=== PATIENT | male | born 1950 | race Caucasian/White ===

== ENCOUNTER → 2023-11-29 11:56 | Outpatient (REF) | payer OTHER, SELFPAY | LOC: PET 11:56 | PROVIDERS: ATTENDING PHYSICIAN Internal Medicine Hematology & Oncology | DX: C34.11 Malignant neoplasm of upper lobe, right bronchus or lung (principal) | CPT/HCPCS: 78815; A9552 ==

== ENCOUNTER → 2023-12-27 15:57 | Outpatient (REF) | payer OTHER, SELFPAY | LOC: DHCBS HW 15:57 | PROVIDERS: ATTENDING PHYSICIAN Internal Medicine Cardiovascular Disease; FAMILY PHYSICIAN Family Medicine | DX: I31.9 Disease of pericardium, unspecified (principal) | CPT/HCPCS: 93306 ==

== ENCOUNTER → 2024-02-25 15:58 | Outpatient (REF) | payer OTHER, SELFPAY ==
[2024-02-25 14:21] LABS: % Basophils 0.1 % (0-2); % Eosinophils 0.1 % (0-6); % Lymphocytes 18.4 % (20.5-51.1); % Monocytes 7.4 % (1.7-9.3); Absolute Immature Granulocytes 0.2 10^3/uL (0-0.05); Absolute Monocytes 1.2 10^3/uL (0.1-0.6); Absolute Neutrophils 11.8 10^3/uL (1.4-6.5); Hemoglobin 14.2 g/dL (13.0-18.0); Mean Corp Hgb Conc. 34.6 g/dL (33.0-37.0); Mean Corpuscular Hgb 33.3 pg (27.0-31.0); Mean Platelet Volume 9.6 fL (7.4-10.4); Nucleated Red Blood Cells % 0 % (-); Platelet Count 289 10^3/uL (130-400); Red Blood Cell Count 4.27 10^6/uL (4.70-6.10); Red Cell Dist. Width 13.2 % (11.5-14.5); White Blood Cell Count 16.1 10^3/uL (4.8-10.8)
[2024-02-25 16:33] LABS: ALT (SGPT) 19 U/L (0-50); AST (SGOT) 34 U/L (17-59); Albumin 4.1 g/dl (3.5-5.0); Alkaline Phosphatase 96 U/L (38-126); Blood Urea Nitrogen 21 mg/dl (9-20); Calcium 9.1 mg/dl (8.4-10.2); Carbon Dioxide 23 mmol/L (22-30); Chloride 102 mmol/L (98-107); Glucose 83 mg/dl (70-99); Potassium 3.7 mmol/L (3.5-5.1); Sodium 133 mmol/L (135-145); eGFR > 60.00
== END ==
LOC: OIDL 15:58
PROVIDERS: ATTENDING PHYSICIAN Internal Medicine Hematology & Oncology
DX: C34.11 Malignant neoplasm of upper lobe, right bronchus or lung (principal)
CPT/HCPCS: 80053; 85025

== ENCOUNTER → 2024-03-17 10:56 | Outpatient (REF) | payer OTHER, SELFPAY | LOC: PET 10:56 | PROVIDERS: ATTENDING PHYSICIAN Internal Medicine Hematology & Oncology | DX: C34.11 Malignant neoplasm of upper lobe, right bronchus or lung (principal) | CPT/HCPCS: 78815; A9552 ==

== ENCOUNTER 2024-04-04 10:47 | Emergency (ER) | payer OTHER, SELFPAY ==
[2024-04-04 10:48] VITALS: BP 117/69
[2024-04-04] MEDS: ROXICODONE 5 MG PO (12:11)
[2024-04-04] MEDS: MOTRIN 600 MG PO (12:11)
--- NOTE | 2024-04-04 12:22 | ED.GENMED ---
History of Present Illness
General
Chief Complaint: Musculo-Skeletal Complaint
Source: patient and spouse
Time Seen by Provider: 04/04/24 11:44
Travel History
Have you had any contact with someone who has COVID-19?: No
Do you have any symptoms of coronavirus? Fever > 100 degrees, chills, cough, shortness of breath, sore throat, loss of taste or smell, muscle aches, or headache?: No
History of Present Illness
History of Present Illness:
73-year-old male with past medical history of lung cancer currently undergoing immunotherapy, previous clot in the groin, previously on Eliquis but not on any anticoagulants currently presenting to the emergency department for evaluation of
bilateral hip, knee and ankle pain has been ongoing for about 2 days. Patient took some tramadol this morning with no relief of symptoms. He states that pain seems to be most prominent around the right knee and describes this to be a 10 out of 10
sharp pain as well as pain within the ankles being around a 7 out of 10. Patient states he does have a history of neuropathy for which he takes gabapentin for it but that this pain is different than his typical neuropathy. Denies any trauma,
fevers or infectious symptoms, rashes or any other concerns. Patient states he believes that the causing some of his pain and symptoms.
Past History
Past History
ED Past Medical History: Cancer (Lung) and Psychiatric (depression, LE DVT 05/14 on eliquis for 6 mos)
ED Past Surgical History: Appendectomy, Tonsilectomy and Other (RUL lung resection)
Social History
Tobacco: Smoker
Alcohol: None
Drug: None
Personal:
Living: with family
Review of Systems
Review of Systems
All Other Systems: ROS reviewed and negative except as documented in HPI and ROS
Phy Exam
Physical Exam
Physical Exam:
GENERAL: Alert , in no apparent distress
EYE: conjunctiva clear
NECK: Supple, no significant adenopathy.
ENT: o/p clr, mmm.
CARDIAC: Regular rate and rhythm
LUNGS: Clear breath sounds bilaterally, no acute respiratory distress, no wheezes/rales/rhonchi
NEUROLOGICAL: Alert and oriented
SKIN: Warm and dry, skin intact.
MUSCULOSKELETAL: well perfused. No joint erythema/edema. Extremities are warm and well-perfused bilateral
PSYCH: Normal and appropriate interaction.
Scores
Heart Failure Risk
Heart Failure Risk Score: Not Applicable
Heart Score for Chest Pain Patients
STEMI patient?: Not applicable
Withdrawal Assessment of Alcohol
Withdrawal Assessment Completed?: Not applicable
Course
Orders/Labs/Results
Orders:
Orders
04/04/24 11:51
Ibuprofen [Motrin] 600 mg PO NOW STA
Oxycodone [Roxicodone] 5 mg PO NOW STA
US Periph Venous LOWER Ext Zac Urgent
Comment:
Reason For Exam: pain b/l legs
04/04/24 12:02
Basic Metabolic Panel Urgent
CRP [C-Reactive Protein] Urgent
Complete Blood Count/With Diff Urgent
ESR [Erythrocyte Sed Rate] Urgent
Lyme Progressive Urgent
Abnormal Lab Results
04/04/24
12:02
WBC 11.3 H 10^3/uL
(4.8-10.8)
RBC 3.69 L 10^6/uL
(4.70-6.10)
Hgb 12.8 L g/dL
(13.0-18.0)
Hct 37.5 L %
(39.0-52.0)
MCV 101.6 H fL
(80.0-94.0)
MCH 34.7 H pg
(27.0-31.0)
RDW 15.1 H %
(11.5-14.5)
Abs Immat Gran (auto) 0.3 H 10^3/uL
(0-0.05)
Absolute Neuts (auto) 9.0 H 10^3/uL
(1.4-6.5)
Absolute Lymphs (auto) 1.1 L 10^3/uL
(1.2-3.4)
Absolute Monos (auto) 0.9 H 10^3/uL
(0.1-0.6)
Immature Gran % 2.2 H %
(0-0.5)
Neutrophils % 79.6 H %
(42.2-75.2)
Lymphocytes % 9.3 L %
(20.5-51.1)
ESR 28 H mm/hour
(0-20)
C-Reactive Protein 61.60 H mg/L
(0.0-10.00)
04/04/24 12:02
04/04/24 12:02
Vital Signs
Initial and Last Documented VS:
Initial Vital Signs
Temp Pulse Resp BP Pulse Ox
99.5 F 83 16 117/69 96
04/04/24 10:48 04/04/24 10:48 04/04/24 10:48 04/04/24 10:48 04/04/24 10:48
Last Documented Vital Signs
Temp Pulse Resp BP Pulse Ox
99.5 F 83 18 117/69 96
04/04/24 10:48 04/04/24 10:48 04/04/24 13:39 04/04/24 10:48 04/04/24 10:48
MDM/Problems Addressed
Differential Diagnosis Includes:
Polyneuropathy, less concern for infectious etiology, given history of previous clot will obtain ultrasound although pain seems to be mostly joint related only which would be less likely to be presenting symptom for DVT as well as the bilateral
nature symptoms
MDM/Problems Addressed:
73-year-old male presenting emergency department for evaluation of polyarthropathy that has been gradually worsening over the last 2 days. Unrelieved with tramadol as well as his gabapentin. Difficult time sleeping secondary to pain. No trauma.
No fevers or infectious symptoms. Will check labs as well as an ultrasound given patient's history. In the meantime we will treat with Percocet and ibuprofen. Reassessment following.
Chronic conditions affecting care: Cancer
*Pulse Oximetry
Patient hypoxic: no
*Critical Care Note
Total Time (30-74mins, 75-104mins- exclusive of procedures): Not Applicable
Patient Management
Escalation/DeEscalation of care consider admission/obs:
Patient reporting good relief with medications. Labs are otherwise reassuring. He does have some mildly elevated inflammatory markers. Patient was provided with printout of lab reports. He will follow-up with his immunotherapy as scheduled this
week. Advised follow-up with primary as well. Stable for discharge and aware of return precautions.
ED Attending Note
-
Portions of this chart may have been created with voice recognition software.� Occasional wrong word or��sound alike� substitutions may have occurred due to the inherent limitations of voice recognition software.
Discharge Plan
Departure
Patient Disposition: Home (Routine Discharge)
Date of Disposition: 04/04/24
Time of Disposition: 13:52
Patient with high blood pressure during this ER visit?: No
Discharge Problem:
Polyarthralgia
Instructions: Joint Pain
Prescriptions:
New
oxycodone-acetaminophen [Percocet] 5-325 mg tablet
1 tab PO Q6HPRN PRN (Reason: pain) Qty: 8 0RF
No Action
vitamin E 1,000 UNIT capsule
1 tab PO DAILY
Patient Comments:
pt is unsure of strength'
alpha lipoic acid 50 MG capsule
50 mg PO DAILY
Patient Comments:
pt is unsure of strength
ascorbic acid (vitamin C) [Vitamin C] 100 MG tablet
1,000 mg PO DAILY
Patient Comments:
pt is unsure of medication strength
vitamin B complex [Neurodep] 1 CAP capsule
1 cap PO DAILY
Patient Comments:
pt is unsure of strength
cholecalciferol (vitamin D3) 2,000 UNIT tablet
2,000 unit PO DAILY
Patient Comments:
pt is unsure of strength
Neurontin
300 PO R Q8
ondansetron [Zofran ODT] 8 MG tablet,disintegrating
8 PO Q8HPRN PRN (Reason: Nausea)
Tramadol HCl
50 PO Q6HPRN PRN (Reason: pain)
folic acid 1 MG tablet
1 mg PO
apixaban [Eliquis] 5 MG tablet
5 mg PO BID Qty: 60 0RF
apixaban [Eliquis] 5 MG tablet
10 mg PO BID Qty: 28 0RF
tramadol 50 MG tablet
50 mg PO Q6HPRN PRN (Reason: svere pain) Qty: 12 0RF
colchicine 0.6 mg tablet
0.6 mg PO DAILY Qty: 90 0RF
ibuprofen 600 mg tablet
600 mg PO QID Qty: 30 0RF
Referrals:
Jade Thacker MD [Family Provider] -
Interventions
Interventions:
*Risk Screen - Suicide Last Done: 04/04/24 10:48
*General Assessment Last Done: 04/04/24 10:48
*Neglect/Abuse Screening Last Done: 04/04/24 10:48
ED- Fall Risk Assessment Last Done: 04/04/24 12:05
*ED COVID-19 Vaccine History Last Done: 04/04/24 12:05
ED-Musculoskeletal Assessment Last Done: 04/04/24 12:04
Discharge Date and Time
Print Language: SPANISH
[2024-04-04 12:44] LABS: % Basophils 0.5 % (0-2); % Eosinophils 0.8 % (0-6); % Immature Granulocytes 2.2 % (0-0.5); % Lymphocytes 9.3 % (20.5-51.1); % Monocytes 7.6 % (1.7-9.3); % Neutrophils 79.6 % (42.2-75.2); Absolute Basophils 0.1 10^3/uL (0-0.2); Absolute Eosinophils 0.1 10^3/uL (0-0.7); Absolute Immature Granulocytes 0.3 10^3/uL (0-0.05); Absolute Lymphocytes 1.1 10^3/uL (1.2-3.4); Absolute Monocytes 0.9 10^3/uL (0.1-0.6); Hematocrit 37.5 % (39.0-52.0); Hemoglobin 12.8 g/dL (13.0-18.0); Mean Corp Hgb Conc. 34.1 g/dL (33.0-37.0); Mean Corpuscular Hgb 34.7 pg (27.0-31.0); Mean Corpuscular Volume 101.6 fL (80.0-94.0); Mean Platelet Volume 9.5 fL (7.4-10.4); Nucleated Red Blood Cells % 0 % (-); Platelet Count 220 10^3/uL (130-400); Red Blood Cell Count 3.69 10^6/uL (4.70-6.10); Red Cell Dist. Width 15.1 % (11.5-14.5); White Blood Cell Count 11.3 10^3/uL (4.8-10.8)
[2024-04-04 12:55] LABS: Blood Urea Nitrogen 18 mg/dl (9-20); Calcium 9.1 mg/dl (8.4-10.2); Carbon Dioxide 28 mmol/L (22-30); Chloride 99 mmol/L (98-107); Glucose 83 mg/dl (70-99); Potassium 4.3 mmol/L (3.5-5.1); Sodium 135 mmol/L (135-145); eGFR > 60.00
[2024-04-04 12:59] LABS: Erythrocyte Sed Rate 28 mm/hour (0-20)
[2024-04-04 14:06] VITALS: BP 118/61
[2024-04-06 13:58] LABS: Lyme Antibody Screen, EIA Negative (Negative)
== END 2024-04-04 14:09 | disposition home or self-care (01) ==
LOC: EMR 10:47
PROVIDERS: Physician Assistant Medical; EMERGENCY PHYSICIAN Emergency Medicine; FAMILY PHYSICIAN Family Medicine
DX: M25.552 Pain in left hip (principal); M25.551 Pain in right hip; M25.562 Pain in left knee; M25.561 Pain in right knee; M25.572 Pain in left ankle and joints of left foot; M25.571 Pain in right ankle and joints of right foot; F17.200 Nicotine dependence, unspecified, uncomplicated
CPT/HCPCS: 99284; 80048; 85025; 85652; 86140; 86618; 93970

== ENCOUNTER 2024-05-15 11:55 | Emergency (ER) | payer OTHER, SELFPAY ==
[2024-05-15 11:58] VITALS: BP 130/58
[2024-05-15 12:36] VITALS: BP 106/57
[2024-05-15 13:03] VITALS: BP 102/58
[2024-05-15 13:22] LABS: % Basophils 0.3 % (0-2); % Eosinophils 5.1 % (0-6); % Immature Granulocytes 0.7 % (0-0.5); % Lymphocytes 16.2 % (20.5-51.1); % Monocytes 11.2 % (1.7-9.3); % Neutrophils 66.5 % (42.2-75.2); Absolute Eosinophils 0.5 10^3/uL (0-0.7); Absolute Immature Granulocytes 0.1 10^3/uL (0-0.05); Absolute Lymphocytes 1.4 10^3/uL (1.2-3.4); Absolute Neutrophils 5.8 10^3/uL (1.4-6.5); Hemoglobin 10.6 g/dL (13.0-18.0); Mean Corp Hgb Conc. 34.2 g/dL (33.0-37.0); Mean Corpuscular Hgb 35.7 pg (27.0-31.0); Mean Corpuscular Volume 104.4 fL (80.0-94.0); Mean Platelet Volume 9.5 fL (7.4-10.4); Nucleated Red Blood Cells % 0 % (-); Platelet Count 184 10^3/uL (130-400); Red Blood Cell Count 2.97 10^6/uL (4.70-6.10); Red Cell Dist. Width 15.2 % (11.5-14.5); White Blood Cell Count 8.8 10^3/uL (4.8-10.8)
[2024-05-15 13:37] LABS: ALT (SGPT) 29 U/L (0-50); AST (SGOT) 27 U/L (17-59); Albumin 3.3 g/dl (3.5-5.0); Alkaline Phosphatase 70 U/L (38-126); Blood Urea Nitrogen 11 mg/dl (9-20); Calcium 8.7 mg/dl (8.4-10.2); Carbon Dioxide 30 mmol/L (22-30); Chloride 101 mmol/L (98-107); Glucose 83 mg/dl (70-99); Potassium 4.3 mmol/L (3.5-5.1); Sodium 133 mmol/L (135-145); Total Bilirubin 1.1 mg/dl (0.2-1.3); Total Protein 5.8 g/dl (6.3-8.2); eGFR > 60.00
[2024-05-15 13:46] LABS: NT-proBNP 168 pg/ml
[2024-05-15 14:17] VITALS: BP 123/98
--- NOTE | 2024-05-15 15:25 | ED.GENMED ---
History of Present Illness
<GADIEL Del Valle Jr. Last Filed: 05/16/24 07:13>
General
Chief Complaint: Swelling
Source: patient
Exam Limitations: none
Time Seen by Provider: 05/15/24 12:24
Nursing documentation reviewed up to this point in time: agreed with
History of Present Illness
History of Present Illness:
73-year-old male with past medical history of lung cancer currently on chemo presenting to the emergency department today with concerns of diffuse swelling mainly to the neck and low back. Has been worsening recently was scheduled for an outpatient
CT scan but claims that symptoms worsened in the last few days with prompted him to the ER. Denies any specific chest pain shortness of breath vomiting fevers.
Past History
<GADIEL Del Valle Jr. Last Filed: 05/16/24 07:13>
Past History
ED Past Medical History: Cancer (Lung) and Psychiatric (depression, LE DVT 05/14 on eliquis for 6 mos)
ED Past Surgical History: Appendectomy, Tonsilectomy and Other (RUL lung resection)
Social History
Tobacco: Smoker
Alcohol: None
Drug: None
Personal:
Living: with family
Review of Systems
<GADIEL Del Valle Jr. Last Filed: 05/16/24 07:13>
Review of Systems
Allergies reviewed?: Yes
All Other Systems: ROS reviewed and negative except as documented in HPI and ROS
Phy Exam
<GADIEL Del Valle Jr. Last Filed: 05/16/24 07:13>
Physical Exam
Physical Exam:
GENERAL: Alert , in no apparent distress
EYE: pupils equal and reactive
NECK: Supple, no significant adenopathy.
ENT: Patient appears have a vague diffuse swelling from the neck and face. Nonpitting o/p clr, mmm.
CARDIAC: Regular rate and rhythm .
LUNGS: Clear breath sounds bilaterally, no acute respiratory distress, no wheezes/rales/rhonchi
ABDOMEN: Soft, without focal tenderness, no r/g, no cvat
NEUROLOGICAL: Alert and oriented, no focal neuro deficits
SKIN: Warm and dry, skin intact.
MUSCULOSKELETAL: No edema, well perfused.
PSYCH: Normal and appropriate interaction.
Scores
<Jonny Garcia Jr., PA-C - Last Filed: 05/16/24 07:13>
Heart Failure Risk
Heart Failure Risk Score: Not Applicable
Course
<Jonny Garcia Jr., PA-C - Last Filed: 05/16/24 07:13>
Orders/Labs/Results
Orders:
Orders
05/15/24 13:02
EKG [Electrocardiogram (*1)] Urgent
Reason for Study: Fatigue / Weakness
CT Chest/abd/pel W Iv Cont Urgent
Comment:
Reason For Exam: diffuse swelling, hx of CA
CT Neck With Iv Contrast Urgent
Comment:
Reason For Exam: neck sweling
EKG- Treatment ONCE
05/15/24 13:10
Iohexol [Omnipaque] 50 ml .ROUTE .[facility]
05/15/24 13:12
CBC/With Diff [Complete Blood Count/With Diff] Urgent
CMP [Comprehensive Metabolic Panel] Urgent
Pro-BNP [NT-proBNP] Urgent
Abnormal Lab Results
05/15/24
13:12
RBC 2.97 L 10^6/uL
(4.70-6.10)
Hgb 10.6 L g/dL
(13.0-18.0)
Hct 31.0 L %
(39.0-52.0)
MCV 104.4 H fL
(80.0-94.0)
MCH 35.7 H pg
(27.0-31.0)
RDW 15.2 H %
(11.5-14.5)
Abs Immat Gran (auto) 0.1 H 10^3/uL
(0-0.05)
Absolute Monos (auto) 1.0 H 10^3/uL
(0.1-0.6)
Immature Gran % 0.7 H %
(0-0.5)
Lymphocytes % 16.2 L %
(20.5-51.1)
Monocytes % 11.2 H %
(1.7-9.3)
Sodium 133 L mmol/L
(135-145)
Total Protein 5.8 L g/dl
(6.3-8.2)
Albumin 3.3 L g/dl
(3.5-5.0)
05/15/24 13:12
05/15/24 13:12
Vital Signs
Initial and Last Documented VS:
Initial Vital Signs
Temp Pulse Resp BP Pulse Ox
98.9 F 101 18 130/58 97
05/15/24 11:58 05/15/24 11:58 05/15/24 11:58 05/15/24 11:58 05/15/24 11:58
Last Documented Vital Signs
Temp Pulse Resp BP Pulse Ox
98.9 F 91 20 123/98 93
05/15/24 11:58 05/15/24 12:20 05/15/24 12:20 05/15/24 14:17 05/15/24 14:45
[place];Srikanth Mcdowell PA-C - Last Filed: 05/15/24 16:28>
Orders/Labs/Results
Orders:
Orders
05/15/24 13:02
EKG [Electrocardiogram (*1)] Urgent
Reason for Study: Fatigue / Weakness
CT Chest/abd/pel W Iv Cont Urgent
Comment:
Reason For Exam: diffuse swelling, hx of CA
CT Neck With Iv Contrast Urgent
Comment:
Reason For Exam: neck sweling
EKG- Treatment ONCE
05/15/24 13:10
Iohexol [Omnipaque] 50 ml .ROUTE .[facility]
05/15/24 13:12
CBC/With Diff [Complete Blood Count/With Diff] Urgent
CMP [Comprehensive Metabolic Panel] Urgent
Pro-BNP [NT-proBNP] Urgent
Abnormal Lab Results
05/15/24
13:12
RBC 2.97 L 10^6/uL
(4.70-6.10)
Hgb 10.6 L g/dL
(13.0-18.0)
Hct 31.0 L %
(39.0-52.0)
MCV 104.4 H fL
(80.0-94.0)
MCH 35.7 H pg
(27.0-31.0)
RDW 15.2 H %
(11.5-14.5)
Abs Immat Gran (auto) 0.1 H 10^3/uL
(0-0.05)
Absolute Monos (auto) 1.0 H 10^3/uL
(0.1-0.6)
Immature Gran % 0.7 H %
(0-0.5)
Lymphocytes % 16.2 L %
(20.5-51.1)
Monocytes % 11.2 H %
(1.7-9.3)
Sodium 133 L mmol/L
(135-145)
Total Protein 5.8 L g/dl
(6.3-8.2)
Albumin 3.3 L g/dl
(3.5-5.0)
05/15/24 13:12
05/15/24 13:12
Vital Signs
Initial and Last Documented VS:
Initial Vital Signs
Temp Pulse Resp BP Pulse Ox
98.9 F 101 18 130/58 97
05/15/24 11:58 05/15/24 11:58 05/15/24 11:58 05/15/24 11:58 05/15/24 11:58
Last Documented Vital Signs
Temp Pulse Resp BP Pulse Ox
98.9 F 91 20 123/98 93
05/15/24 11:58 05/15/24 12:20 05/15/24 12:20 05/15/24 14:17 05/15/24 14:45
<Jonny Garcia Jr., PA-C - Last Filed: 05/16/24 07:13>
MDM/Problems Addressed
MDM/Problems Addressed:
33-year-old male presenting to the emergency department today with concerns of diffuse swelling mainly to the neck and low back but also has noted some to his ankles as well. Has been on chemo for lung cance He was scheduled to have an outpatient
CT scan for further assessment of this. Patient came in today due to concerns of worsening symptoms over the past few days. CT scan of the neck chest abdomen pelvis was ordered for further assessment of this. The swelling the patient has is vague
diffuse no redness or warmth no tenderness to palpation. No pitting edema. Patient ended up having CT scan of the neck chest abdomen and pelvis as prescribed by the oncologist this was pending when care transition to oncoming PA
<Jonny Garcia Jr., PA-C - Last Filed: 05/16/24 07:13>
*Critical Care Note
Total Time (30-74mins, 75-104mins- exclusive of procedures): Not Applicable
<Srikanth Mcdowell PA-C - Last Filed: 05/15/24 16:28>
Update Note
Update Note:
Assumed care of patient pending CT of neck chest abdomen and pelvis. These were performed and read by radiology. There is no acute finding noted on the CAT scans. Patient reassured. Advise follow-up with his oncologist. Stable for discharge
ED Attending Note
<Jonny Garcia Jr., PA-C - Last Filed: 05/16/24 07:13>
-
Portions of this chart may have been created with voice recognition software.� Occasional wrong word or��sound alike� substitutions may have occurred due to the inherent limitations of voice recognition software.
Discharge Plan
Departure
Patient Disposition: Home (Routine Discharge)
Date of Disposition: 05/15/24
Time of Disposition: 16:27
Patient with high blood pressure during this ER visit?: No
Discharge Problem:
Swelling
Prescriptions:
No Action
vitamin E 1,000 UNIT capsule
1 tab PO DAILY
Patient Comments:
pt is unsure of strength'
alpha lipoic acid 50 MG capsule
50 mg PO DAILY
Patient Comments:
pt is unsure of strength
ascorbic acid (vitamin C) [Vitamin C] 100 MG tablet
1,000 mg PO DAILY
Patient Comments:
pt is unsure of medication strength
vitamin B complex [Neurodep] 1 CAP capsule
1 cap PO DAILY
Patient Comments:
pt is unsure of strength
cholecalciferol (vitamin D3) 2,000 UNIT tablet
2,000 unit PO DAILY
Patient Comments:
pt is unsure of strength
Neurontin
300 PO R Q8
ondansetron [Zofran ODT] 8 MG tablet,disintegrating
8 PO Q8HPRN PRN (Reason: Nausea)
Tramadol HCl
50 PO Q6HPRN PRN (Reason: pain)
folic acid 1 MG tablet
1 mg PO
apixaban [Eliquis] 5 MG tablet
5 mg PO BID Qty: 60 0RF
apixaban [Eliquis] 5 MG tablet
10 mg PO BID Qty: 28 0RF
tramadol 50 MG tablet
50 mg PO Q6HPRN PRN (Reason: svere pain) Qty: 12 0RF
colchicine 0.6 mg tablet
0.6 mg PO DAILY Qty: 90 0RF
ibuprofen 600 mg tablet
600 mg PO QID Qty: 30 0RF
oxycodone-acetaminophen [Percocet] 5-325 mg tablet
1 tab PO Q6HPRN PRN (Reason: pain) Qty: 8 0RF
Referrals:
Jade Thacker MD [Family Provider] -
Activity Restrictions/Additional Instructions:
Please return here for worsening symptoms otherwise follow-up with your oncologist for further evaluation
Interventions
Interventions:
*Risk Screen - Suicide Last Done: 05/15/24 11:59
*General Assessment Last Done: 05/15/24 11:59
*Neglect/Abuse Screening Last Done: 05/15/24 11:59
*Nursing Disposition Last Done: 05/15/24 16:46
ED- Cardiac Assessment Last Done: 05/15/24 12:20
ED- Pulmonary Assessment Last Done: 05/15/24 12:19
ED-Skin Assessment Last Done: 05/15/24 12:20
Discharge Date and Time
Discharge Date/Time: 05/15/24 16:48
Print Language: CROATIAN
== END 2024-05-15 16:48 | disposition home or self-care (01) ==
LOC: EMR 11:55
PROVIDERS: Physician Assistant; EMERGENCY PHYSICIAN Emergency Medicine; FAMILY PHYSICIAN Family Medicine
DX: M54.2 Cervicalgia (principal); M54.50 Low back pain, unspecified; R22.1 Localized swelling, mass and lump, neck; R22.2 Localized swelling, mass and lump, trunk; R22.43 Localized swelling, mass and lump, lower limb, bilateral; C34.90 Malignant neoplasm of unspecified part of unspecified bronchus or lung; F32.A Depression, unspecified; G62.9 Polyneuropathy, unspecified; M19.90 Unspecified osteoarthritis, unspecified site; F17.200 Nicotine dependence, unspecified, uncomplicated; Z85.820 Personal history of malignant melanoma of skin; Z86.718 Personal history of other venous thrombosis and embolism; Z79.01 Long term (current) use of anticoagulants; Z90.2 Acquired absence of lung [part of]; Z88.1 Allergy status to other antibiotic agents; Z91.018 Allergy to other foods
CPT/HCPCS: 99285; 70491; 71260; 74177; 80053; 83880; 85025; 93005; Q9967

== ENCOUNTER → 2024-05-30 10:09 | Outpatient (REF) | payer OTHER, SELFPAY ==
[2024-05-30] MEDS: VANCOCIN 200 IV (10:46)
[2024-05-30 10:52] VITALS: BP 152/76; BP_SYST 85
[2024-05-30 12:00] VITALS: BP_SYST 87
== END ==
LOC: RADI 10:09
PROVIDERS: ATTENDING PHYSICIAN Internal Medicine Hematology & Oncology; FAMILY PHYSICIAN Family Medicine
DX: C34.11 Malignant neoplasm of upper lobe, right bronchus or lung (principal)
CPT/HCPCS: 36561; 76937; 77001; 99152; 99153; C1788

== ENCOUNTER 2024-06-21 22:32 | Inpatient (IN) | payer OTHER, SELFPAY ==
[2024-06-21 14:06] VITALS: BMI 26.2
[2024-06-21 14:27] VITALS: BP 119/65
--- NOTE | 2024-06-21 14:31 | ED.PDOC.TRB ---
ED Provider Triage
-
Patient seen by provider in Triage?: Seen in Triage
A medical screening examination has been initiated by a qualified medical provider. Based on the assessment performed at this time, it has been determined that an emergent medical condition may exist and the patient has been informed that further
medical evaluation and possible additional diagnostic testing may be needed.
HPI: This is a medical evaluation conducted in person to initiate diagnostic evaluation and provide initial therapeutics. Please see further documentation by the treating clinician.
GENERAL: Alert ,tearful
EYE: No visual abnormalities.
NECK: Trachea midline
ENT: No visible abnormalities.
LUNGS: No acute respiratory distress
NEUROLOGICAL: Alert and oriented
SKIN: no visible lesions.
MUSCULOSKELETAL: Moving extremities normally
PSYCH: Normal and appropriate interaction.
73-year-old male presenting to the emergency department today with concerns of GI bleed. Stool has abruptly become black with some mixed red this morning. Denies any history of this. Does have a history of lung cancer does not take any blood
thinners. Denies any acute abdominal pain. No reproducible abdominal pain on physical examination. Initial labs Sent pending additional assessment.
[2024-06-21 15:08] VITALS: BP 126/64
[2024-06-21 15:42] LABS: % Basophils 0.2 % (0-2); % Eosinophils 2.8 % (0-6); % Immature Granulocytes 0.2 % (0-0.5); % Lymphocytes 12.7 % (20.5-51.1); % Monocytes 11.8 % (1.7-9.3); % Neutrophils 72.3 % (42.2-75.2); Absolute Eosinophils 0.2 10^3/uL (0-0.7); Absolute Neutrophils 5.9 10^3/uL (1.4-6.5); Hematocrit 29.5 % (39.0-52.0); Hemoglobin 10.3 g/dL (13.0-18.0); Mean Corp Hgb Conc. 34.9 g/dL (33.0-37.0); Mean Corpuscular Hgb 34.7 pg (27.0-31.0); Mean Corpuscular Volume 99.3 fL (80.0-94.0); Nucleated Red Blood Cells % 0 % (-); Platelet Count 187 10^3/uL (130-400); Red Blood Cell Count 2.97 10^6/uL (4.70-6.10); Red Cell Dist. Width 12.8 % (11.5-14.5); White Blood Cell Count 8.2 10^3/uL (4.8-10.8)
[2024-06-21 15:52] LABS: ALT (SGPT) 13 U/L (0-50); AST (SGOT) 19 U/L (17-59); Albumin 3.3 g/dl (3.5-5.0); Alkaline Phosphatase 78 U/L (38-126); Blood Urea Nitrogen 9 mg/dl (9-20); Calcium 8.7 mg/dl (8.4-10.2); Carbon Dioxide 27 mmol/L (22-30); Chloride 103 mmol/L (98-107); Glucose 99 mg/dl (70-99); Potassium 3.8 mmol/L (3.5-5.1); Sodium 139 mmol/L (135-145); Total Bilirubin 1.2 mg/dl (0.2-1.3); Total Protein 5.8 g/dl (6.3-8.2); eGFR > 60.00
[2024-06-21 15:53] LABS: INR 1.14; PT 14.7 Sec (11.4-14.6)
--- NOTE | 2024-06-21 15:53 | ED.GENMED ---
History of Present Illness
General
Chief Complaint: Anal/Rectal Problem
Source: patient
Exam Limitations: none
Time Seen by Provider: 06/21/24 15:10
Nursing documentation reviewed up to this point in time: agreed with
History of Present Illness
History of Present Illness:
73 r old with past medical history of lung cancer (completed chemotherapy a year ago started immunotherapy in December followed by Dr. Olvera), chest pain hyperlipidemia DVT not on anticoagulation presents to the ER for evaluation. Yesterday he
noticed that his urine was dark twice, and he was concerned about blood in the urine. Today he was concerned that his stool was possibly dark. He denies any lightheaded dizziness. pt in triage note mention he had some bloating and abdominal pain.
He initially did not complain of this but when asked does feel that he has had intermittent bloating and back pain. He reports since having immunotherapy and chemo for lung cancer he typically has pain all over.
He denies any chest pain shortness of breath fever chills.
Patient had a last immunotherapy 2 weeks ago and is not scheduled again till July after imaging.
Past History
Past History
ED Past Medical History: Cancer (Lung) and Psychiatric (depression, LE DVT 05/14 on eliquis for 6 mos)
ED Past Surgical History: Appendectomy, Tonsilectomy and Other (RUL lung resection)
Social History
Tobacco: Smoker
Alcohol: None
Drug: None
Personal:
Living: with family
Review of Systems
Review of Systems
Allergies reviewed?: Yes
All Other Systems: ROS reviewed and negative except as documented in HPI and ROS
Constitutional: Reports no symptoms; Denies fever, fatigue or chills
EENT: Reports no symptoms
Respiratory: Reports no symptoms
Cardiac: Reports no symptoms
ABD/GI: Reports no symptoms and other ('dark stool' ); Denies abdominal pain
: Reports other (dark urine )
Musculoskeletal: Reports no symptoms; Denies neck pain or back pain
Skin: Reports no symptoms
Neurological: Reports no symptoms
Psychiatric: Reports no symptoms
Phy Exam
General Physical Exam
General Presentation: no apparent distress
General age: appears stated age
General Skin: warm
General Habitus: elderly
General Mental: alert
General Hydration: appears well hydrated
Cardiovascular Exam
Cardiovascular Exam: regular rate/rhythm, no murmur and normal peripheral pulses
Pulmonary Exam
Pulmonary Exam: lungs clear and no respiratory distress
Gastrointestinal Exam
Gastrointestinal Exam: non tender, soft and other (brown stool heme negative )
Neurological Exam
Neurological Exam: alert and oriented x3
[place] Coma Scale
Eye Opening: Spontaneous
Verbal Response: Oriented
Motor Response: Obeys Commands
GCS Total Score: 15
Musculoskeletal Exam
Musculoskeletal Exam: full ROM
Skin Exam
Skin Exam: normal color and warm/dry
Psychiatric Exam
Psychiatric Exam: normal mood/affect
Course
Orders/Labs/Results
Orders:
Orders
06/21/24 14:31
0.9% Sodium Chloride 500 ml [Nss] 500 ml IV BOLUS
Pantoprazole [Protonix IV] 80 mg IV NOW STA
06/21/24 15:29
Type+Screen Urgent
06/21/24 15:30
Complete Blood Count/With Diff Urgent
Comprehensive Metabolic Panel Urgent
Lipase Urgent
PTT Urgent
Prothrombin Time Urgent
06/21/24 15:53
ABO2 Urgent
BBK Wristband Number:
Associate notified that ABO2 has been ordered: [id number]
Date: 06/21/24
Time: 15:54
Search Specialist ID: [id number]
06/21/24 15:58
Urinalysis Reflex To Culture Urgent
Date Specimen was Collected: 06/21/24
Time Specimen was Collected: 15:52
Urine Microscopic Reflex Cult Urgent
Urine Culture Urgent
ANGELIKA Source: U
Specimen Description:
Date Specimen was Collected: 06/21/24
Time Specimen was Collected: 15:52
06/21/24 18:30
CT Abd/pelvis W Iv Cont Urgent
Comment:
Reason For Exam: abd pain
Tramadol HCl [Ultram] 50 mg PO NOW STA
Abnormal Lab Results
06/21/24 06/21/24
15:30 15:58
RBC 2.97 L 10^6/uL
(4.70-6.10)
Hgb 10.3 L g/dL
(13.0-18.0)
Hct 29.5 L %
(39.0-52.0)
MCV 99.3 H fL
(80.0-94.0)
MCH 34.7 H pg
(27.0-31.0)
Absolute Lymphs (auto) 1.0 L 10^3/uL
(1.2-3.4)
Absolute Monos (auto) 1.0 H 10^3/uL
(0.1-0.6)
Lymphocytes % 12.7 L %
(20.5-51.1)
Monocytes % 11.8 H %
(1.7-9.3)
PT 14.7 H Sec
(11.4-14.6)
Total Protein 5.8 L g/dl
(6.3-8.2)
Albumin 3.3 L g/dl
(3.5-5.0)
Urine Ketones 2+ A
(Negative)
Urine Bilirubin 1+ A
(Negative)
Urine Urobilinogen 3+ A
(Neg - 1+)
Leukocyte Esterase Rfl Trace A
(Negative)
Urine Bacteria (Reflex) Moderate A
(Negative)
06/21/24 15:30
06/21/24 15:30
Vital Signs
Initial and Last Documented VS:
Initial Vital Signs
Temp Pulse Resp BP Pulse Ox
99.0 F 99 18 119/65 95
06/21/24 14:27 06/21/24 14:27 06/21/24 14:27 06/21/24 14:27 06/21/24 14:27
Last Documented Vital Signs
Temp Pulse Resp BP Pulse Ox
99.0 F 99 21 126/64 94
06/21/24 14:27 06/21/24 17:02 06/21/24 17:02 06/21/24 15:08 06/21/24 17:02
MDM/Problems Addressed
Differential Diagnosis Includes:
Not limited to GI bleed, hematuria, UTI
MDM/Problems Addressed:
Patient is a 73-year-old male with history of lung cancer and other medical history as documented presents here for evaluation. He presented today for evaluation as documented he thought his urine was darker in color was concerned about blood in
his stool was darker in color and he was concerned about bleeding in his stool. Patient is not on blood thinners he presents awake alert no acute distress denies any abdominal pain lightheaded dizziness. His hemoglobin is stable at 10.3. His
stool rectal exam is brown and heme-negative. no blood in urine
On reexam patient complains of lower abdominal discomfort, mildly tender on exam CAT scan done shows:
New stranding surrounding the infrarenal abdominal aorta which is nonspecific however can be seen with aoritis. d/c with susan Garcia/c w/ vascular on-call Dr. Feliz who did look at CAT scan and does recommend admitting to medicine for observation
and possible rheumatology evaluation recommend repeat CTA of the abdomen pelvis in 24 hours to make sure no worse.
Discussed results with patient and patient adm to hospitalist
Chronic conditions affecting care:
Lung cancer completed chemo last immunotherapy 2 weeks ago
*Radiology
Radiology exam reviewed: radiology read reviewed
*Pulse Oximetry
Patient hypoxic: no
*Critical Care Note
Total Time (30-74mins, 75-104mins- exclusive of procedures): Not Applicable
Patient Management
Discussion with other providers: Radiologist (Vascular surg DR Feliz )
ED Attending Note
-
Portions of this chart may have been created with voice recognition software.� Occasional wrong word or��sound alike� substitutions may have occurred due to the inherent limitations of voice recognition software.
Discharge Plan
Departure
Patient Disposition: Admit
Date of Disposition: 06/21/24
Time of Disposition: 21:29
Admit to: Med/Surg
Admit to doctor: hospitalist
Presentation/result/management discussed w/ accepting MD/DO: Hospitalist
Patient with high blood pressure during this ER visit?: No
Condition: Fair
Covid-19: Not Applicable
Discharge Problem:
AORTITIS
Prescriptions:
No Action
cholecalciferol (vitamin D3) 2,000 UNIT tablet
1,000 unit PO DAILY
furosemide [Lasix] 20 mg Tablet
20 mg PO DAILY
rosuvastatin 5 mg Tablet
5 mg PO QPM
escitalopram oxalate [Lexapro] 5 mg Tablet
5 mg PO DAILY
polyethylene glycol 3350 [Miralax] 17 gram Powder In Packet
17 g PO DAILYPRN PRN (Reason: CONSTIPATION)
levothyroxine [Synthroid] 25 mcg Tablet
25 mcg PO DAILY
gabapentin 100 mg Capsule
200 mg PO QPM
Refresh Optive 0.5-0.9 % Drops
1 drp BOTH EYES BIDPRN PRN (Reason: DRYNESS)
magnesium oxide 200 mg magnesium Tablet,Chewable
400 mg PO DAILY
tramadol 50 MG tablet
50 mg PO Q6HPRN PRN (Reason: svere pain)
Referrals:
Jade Thacker MD [Family Provider] -
Interventions
Interventions:
ED- Fall Risk Assessment Last Done: 06/21/24 17:11
*ED COVID-19 Vaccine History Last Done: 06/21/24 14:27
ED-Male Genitourinary Assessment Last Done: 06/21/24 17:11
ED-Skin Assessment Last Done: 06/21/24 17:11
Discharge Date and Time
Print Language: ARMENIAN
[2024-06-21] MEDS: NSS 500 IV (15:57)
[2024-06-21 16:11] LABS: Lipase 24 U/L (23-300)
[2024-06-21 16:14] LABS: Urine Albumin Trace (Neg - Trace); Urine Bilirubin 1+ (Negative); Urine Character Clear (Clear); Urine Color Yellow; Urine Glucose Negative (Negative); Urine Ketone 2+ (Negative); Urine Leukocyte Trace (Negative); Urine Nitrite Negative (Negative); Urine Occult Blood Negative (Negative); Urine Urobilinogen 3+ (Neg - 1+)
[2024-06-21 16:20] LABS: Urine Mucus Many; Urine Red Blood Cell 0-2 /HPF (0-2); Urine Squamous Cell 0-2 /LPF (Few); Urine White Cell 0-2 /HPF (0-5)
[2024-06-21 16:21] LABS: Urine Bacteria Moderate (Negative)
[2024-06-21] MEDS: ULTRAM 50 MG PO (18:38)
[2024-06-21 18:40] VITALS: BP 144/66
[2024-06-21 19:00] VITALS: BP 128/65
[2024-06-21 21:06] VITALS: BP 147/77
[2024-06-21 22:00] VITALS: BP 148/69
--- NOTE | 2024-06-21 22:09 | HPS.HSE ---
Family Physician
-
Family Physician: Jade Thacker MD
Chief Complaint
-
black stool
History of Present Illness
73-year-old male past medical history of lung cancer status post right upper lobe lobectomy completed chemotherapy a year ago and since on immunotherapy since December last session 2 weeks ago, prior DVT, melanoma of right shoulder status post
resection, hyperlipidemia, peripheral neuropathy, rheumatoid arthritis as a child, presenting to the emergency room for black stool which he noticed today. He also noticed dark urine. He denies any burning or frequency. He denies any iron
supplement or Pepto-Bismol use.
Patient states that since starting immunotherapy he has been having intermittent diarrhea/constipation. He has also been having abdominal bloating and distention and decreased appetite. 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
induced Sharon. He also gets diffuse bodyaches after immunotherapy sometimes with swelling in the hands. He has never seen a technical proposal writer.
Over the past few days he has had sore throat with swelling in his neck. He denies any fevers or chills. He has a slight productive cough. He denies any shortness of breath or chest pain.
He is a former smoker. He denies alcohol use.
His sister has lupus.
Medical History
Past Medical History
Past Medical History: Reports Other (lung cancer status post right upper lobe lobectomy completed chemotherapy a year ago and since on immunotherapy since December last session 2 weeks ago, prior DVT, melanoma of right shoulder status post resection,
hyperlipidemia, peripheral neuropathy, rheumatoid arthritis as a child)
Past Surgical History: Reports Other ( Appendectomy, Tonsilectomy and Other (RUL lung resection))
Social History
Tobacco: Former Smoker
Alcohol: None
Family History
Family History: Not pertinent
Allergies / Home Medications
Allergies reflects when Allergies were last updated in [employer].
Home Medications with original date entered in [employer]
Allergy/Medication List:
Allergies
Allergy/AdvReac Type Severity Reaction Status Date / Time
amoxicillin Allergy Unknown Verified 05/15/24 11:58
eggplant Allergy Unknown Verified 06/21/24 14:35
potato Allergy Unknown Verified 06/21/24 14:35
tomato Allergy Unknown Verified 06/21/24 14:35
green peppers Allergy Unknown Uncoded 06/21/24 14:35
Home Medications
cholecalciferol (vitamin D3) 50 mcg (2,000 unit) tablet 1,000 unit PO DAILY Supplement 07/22/20
escitalopram oxalate 5 mg tablet (Lexapro) 5 mg PO DAILY 05/26/24
furosemide 20 mg tablet (Lasix) 20 mg PO DAILY 05/26/24
rosuvastatin 5 mg tablet 5 mg PO QPM 05/26/24
carboxymethylcellulose 0.5 %-glycerin 0.9 % eye drops (Refresh Optive) 1 drp BOTH EYES BIDPRN PRN DRYNESS 06/21/24
gabapentin 100 mg capsule 200 mg PO QPM 06/21/24
levothyroxine 25 mcg tablet (Synthroid) 25 mcg PO DAILY 06/21/24
magnesium oxide 400 mg PO DAILY 06/21/24
polyethylene glycol 3350 17 gram oral powder packet (Miralax) 17 g PO DAILYPRN PRN CONSTIPATION 06/21/24
tramadol 50 mg tablet 50 mg PO Q6HPRN PRN svere pain 06/21/24
Review of Systems
-
History Source: Patient
A 12 point ROS was completed and negative except as noted: Yes
Constitutional: Reports No Symptoms
EENT: Reports See HPI
Respiratory: Reports See HPI
Cardiac: Reports No Symptoms
Abdomen/GI: Reports See HPI
: Reports No Symptoms
Musculoskeletal: Reports No Symptoms
Skin: Reports No Symptoms
Neurological: Reports No Symptoms
Endocrine: Reports No Symptoms
Hematologic/Lymphatic: Reports No Symptoms
Psych: Reports No Symptoms
Physical Exam
Vital Signs
Vital Signs
Temp Pulse Resp BP Pulse Ox
99.0 F 99 21 126/64 94
06/21/24 14:27 06/21/24 17:02 06/21/24 17:02 06/21/24 15:08 06/21/24 17:02
Physical Exam
General: Well Developed, Well Nourished and No Apparent Distress
HEENT: NormoCephalic, Moist mucous membranes, Atraumatic and Other (cervical lymphadenopathy, pharyngeal erythema )
Respiratory: Clear
Cardiac: S1/S2 and Regular Rhythm; No Murmur or Rub
GI: Soft, Non Tender, Non Distended and Normal Bowel Sounds; No Organomegaly
Rectal: Deferred by Provider
Musculoskeletal: No Clubbing, No Cyanosis and No Edema
Skin: No Rash
Neuro: Nonfocal/grossly intact
Laboratory Results
-
06/21/24 15:30
06/21/24 15:30
Laboratory Results
PT 14.7 Sec (11.4-14.6) H 06/21/24 15:30
INR 1.14 06/21/24 15:30
APTT 34.0 Sec (23.4-35.0) 06/21/24 15:30
Total Bilirubin 1.2 mg/dl (0.2-1.3) 06/21/24 15:30
AST 19 U/L (17-59) 06/21/24 15:30
ALT 13 U/L (0-50) 06/21/24 15:30
Alkaline Phosphatase 78 U/L (38-126) 06/21/24 15:30
Lipase 24 U/L (23-300) 06/21/24 15:30
Data Reviewed
-
Lab Data: Labs Reviewed by me
Old Records: Reviewed
Impression/Plan
-
IMPRESSION:
PLAN:
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
-CT abdomen pelvis shows mixed density atherosclerotic plaque of the descending thoracic/abdominal aorta, new stranding surrounding the infrarenal abdominal aorta which can be seen with aortitis
-Vascular surgery consulted and planning on repeat CT scan in 24 to 48 hours to check for progression
-Will need rheumatology input/workup tomorrow
-On Lasix for abdominal distention/neck swelling
# Asymptomatic PACs
-Noted on telemetry
# Sore throat with cervical lymphadenopathy
-Check COVID
-check strep throat, monotest
-may need to check EBV, CMV
-Check TSH
# Black stool per patient
-Stools brown and Hemoccult negative
-Hemoglobin stable
# Dark urine per patient
-Urinalysis unremarkable
Lung cancer status post right upper lobe lobectomy/chemotherapy, now on immunotherapy
History of rheumatoid arthritis as a child as per patient
History of DVT
-Not on anticoagulation
Chronic macrocytic anemia
-Hemoglobin stable
History of melanoma right shoulder status post resection
Hyperlipidemia
-Continue statin
Peripheral neuropathy
-Continue gabapentin
Arthritis
-Continue tramadol
Anxiety/depression
-Continue Lexapro
Hypothyroidism
-Continue levothyroxine
Full code
DVT prophylaxis�heparin
Regular diet
[2024-06-21 23:19] LABS: Monotest Negative (Negative)
[2024-06-21 23:23] LABS: COVID-19 Antigen Negative (Negative)
[2024-06-21 23:53] LABS: TSH Reflex To Free T4 0.66 uIU/ml (0.47-4.68)
[2024-06-22] VITALS (9 sets, daily range): BP systolic 126–147; BP diastolic 69–87; BMI 25.3
[2024-06-22] MEDS: ULTRAM 50 MG PO ×2 (01:00→22:19)
[2024-06-22] MEDS: MELATONIN 10 MG PO ×2 (01:01→22:19)
--- NOTE | 2024-06-22 03:18 | PTCARENOTE ---
Received patient from ED as tele overflow- offers no complaints.
[2024-06-22 03:27] LABS: % Basophils 0.3 % (0-2); % Eosinophils 2.5 % (0-6); % Immature Granulocytes 0.3 % (0-0.5); % Lymphocytes 15.9 % (20.5-51.1); % Monocytes 11.4 % (1.7-9.3); % Neutrophils 69.6 % (42.2-75.2); Absolute Eosinophils 0.2 10^3/uL (0-0.7); Absolute Lymphocytes 1.3 10^3/uL (1.2-3.4); Absolute Monocytes 0.9 10^3/uL (0.1-0.6); Absolute Neutrophils 5.6 10^3/uL (1.4-6.5); Hematocrit 29.6 % (39.0-52.0); Hemoglobin 10.2 g/dL (13.0-18.0); Mean Corp Hgb Conc. 34.5 g/dL (33.0-37.0); Mean Corpuscular Hgb 35.1 pg (27.0-31.0); Mean Corpuscular Volume 101.7 fL (80.0-94.0); Mean Platelet Volume 10.3 fL (7.4-10.4); Nucleated Red Blood Cells % 0 % (-); Platelet Count 175 10^3/uL (130-400); Red Blood Cell Count 2.91 10^6/uL (4.70-6.10); Red Cell Dist. Width 12.6 % (11.5-14.5)
[2024-06-22 03:52] LABS: ALT (SGPT) 12 U/L (0-50); AST (SGOT) 19 U/L (17-59); Albumin 3.1 g/dl (3.5-5.0); Alkaline Phosphatase 76 U/L (38-126); Blood Urea Nitrogen 8 mg/dl (9-20); Calcium 8.4 mg/dl (8.4-10.2); Carbon Dioxide 27 mmol/L (22-30); Chloride 104 mmol/L (98-107); Estimated Creatinine Clearance 90 ml/min; Glucose 99 mg/dl (70-99); Potassium 3.5 mmol/L (3.5-5.1); Sodium 139 mmol/L (135-145); Total Bilirubin 0.9 mg/dl (0.2-1.3); Total Protein 5.6 g/dl (6.3-8.2); eGFR > 60.00
[2024-06-22] MEDS: SYNTHROID 25 MCG PO (05:59)
[2024-06-22 07:08] LABS: Glucose - Point of Care 92 mg/dl (70-99)
--- NOTE | 2024-06-22 07:45 | PTCARENOTE ---
Pt AAOx3 very uncomfortable in bed, Pt placed on ytele pack OOB to Chair. Centrella Max air bed now in room Bariatric bed removed. Pt not hungry Pt on room air at 96% Pt has R subq port lungs are coarse
[2024-06-22] MEDS: VITAMIN D3 (cholecalciferol) 25 MCG PO (07:51)
[2024-06-22] MEDS: LASIX 20 MG PO (07:51)
[2024-06-22] MEDS: HEPARIN 5000 UNITS SC ×2 (07:52→19:59)
[2024-06-22] MEDS: LEXAPRO 5 MG PO (07:52)
[2024-06-22] MEDS: MAG-TAB SR 84 MG PO (07:52)
--- NOTE | 2024-06-22 07:55 | W.PN.HOSP.TC ---
Today's Communication/Plan
-
-Patient accepted for transfer to [facility] at [place], awaiting bed
-Physicians (see below) at the [facility] have asked for the images (after imaging performed tomorrow morning) to be pushed to [facility] and uploaded, and then transfer center will need to be called at [phone], once the
images are pushed and uploaded.
-Beta Stephanie for PAT
-Repeat CT imaging to be performed tomorrow
-Echo
Assessment / Plan
Assessment / Plan
Physical Exam
General: Well Developed, Well Nourished and No Apparent Distress
HEENT: NormoCephalic, Moist mucous membranes, Atraumatic and Other (cervical lymphadenopathy, pharyngeal erythema )
Respiratory: Clear
Cardiac: S1/S2 and Regular Rhythm
GI: Soft, Non Tender, Non Distended and Normal Bowel Sounds
Musculoskeletal: No Cyanosis and No Edema
Skin: Warm. Dry.
Neuro: Nonfocal/grossly intact
Assessment/Plan
73-year-old male history of lung cancer status post lobectomy status post chemotherapy currently on immunotherapy, history of rheumatoid arthritis as a child, here for black stool and dark urine however stool brown here and Hemoccult negative and
urinalysis unremarkable. Also with several vague symptoms associated with immunotherapy including abdominal distention/pain, neck swelling, cervical lymphadenopathy, pharyngitis, consistent with vasculitis/underlying rheumatologic condition. CT
abdomen shows aortitis. Vascular consulted recommending repeating CT abdomen. Checked strep throat, mono, COVID. Will need rheumatology input.
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
-CT abdomen pelvis as per radiologist's report shows mixed density atherosclerotic plaque of the descending thoracic/abdominal aorta, new stranding surrounding the infrarenal abdominal aorta which can be seen with aortitis
-Vascular surgery consulted and planning on repeat CT scan tomorrow
-Will also check CT Chest and echocardiogram
-Inpatient rheumatology service not available at [facility] -- therefore, transferring to the [facility], as below
-On Lasix for abdominal distention/neck swelling
-Vascular surgery and cardiology consulted, appreciate their evaluation and recommendations
#Asymptomatic PACs
#Short Runs of PAT on Telemetry
#Coronary calcification on CT scan
-Noted on telemetry
-Beta stephanie started
# Sore throat with cervical lymphadenopathy
-COVID negative
-check strep throat, monotest
-may need to check EBV, CMV
-Check TSH
# Black stool per patient
-Stools brown and Hemoccult negative
-Hemoglobin stable
-Gastroenterology consulted, appreciate their evaluation and recommendations
-Continue PPI
-Per report, patient declined rectal exam and any GI endoscopies which is reasonable given his other active medical issues and pending transfer to [facility]
# Dark urine per patient
-Urinalysis unremarkable
Lung cancer status post right upper lobe lobectomy/chemotherapy, now on immunotherapy
History of rheumatoid arthritis as a child as per patient
History of DVT
-Not on anticoagulation
Chronic macrocytic anemia
-Hemoglobin stable
History of melanoma right shoulder status post resection
Hyperlipidemia
-Continue statin
Peripheral neuropathy
-Continue gabapentin
Arthritis
-Continue tramadol
Anxiety/depression
-Continue Lexapro
Hypothyroidism
-Continue levothyroxine
Full code
DVT prophylaxis�heparin
Regular diet
Physicians (see below) at the [facility] have asked for the images (after imaging performed tomorrow morning) to be pushed to [facility] and uploaded, and then transfer center will need to be called at [phone], once the
images are pushed and uploaded.
On June 22, 2024, I spoke to hospitalist Desi Wilde and sales agent insurance Saumya Duval, both with [facility] ([facility]), and I called them to transfer the patient to [facility] due to fact that we do not have inpatient rheumatology
service at [facility]. I also spoke with a vascular surgeon at [facility] when speaking to them. Dr. Duval was wondering if we can do a biopsy of the aortitis seen on the initial CT imaging done during this hospitalization, however vascular
surgery here at [facility] said that they cannot do that here. IR may or may not do a biopsy at [facility] once patient is transferred. Patient was accepted for transfer by Dr. Wilde to be transferred to [facility].
Anticipated Discharge: 24 - 48 hours
Subjective/Interval History
-
Date of Service: June 22, 2024
Patient was seen and examined. He denied any significant pain or complaints at the time of patient encounter.
Objective Data
-
Labs:
Laboratory Results
06/22/24
03:04
WBC 8.0
Hgb 10.2 L
Hct 29.6 L
Plt Count 175
Sodium 139
Potassium 3.5
Chloride 104
Carbon Dioxide 27
BUN 8 L
Creatinine 0.7
Glucose 99
Calcium 8.4
Total Bilirubin 0.9
AST 19
ALT 12
Alkaline Phosphatase 76
Vital Signs:
Vital Signs
Temp Pulse Resp BP Pulse Ox
98.9 F 97 19 131/87 95
06/22/24 07:41 06/22/24 07:51 06/22/24 07:41 06/22/24 07:51 06/22/24 07:41
I&O
06/21/24 06/22/24 06/23/24
06:59 06:59 06:59
Output Total 200 / 200
Balance -200 / -200
--- NOTE | 2024-06-22 07:59 | W.PN.UPDATE ---
Update Note
Progress Note Update
Seen and evaluated with [facility]. Full consultation to follow. 73-year-old male with history of right sided lung cancer status post right upper lobectomy, chemotherapy, and currently on immunotherapy. History in addition of rheumatoid arthritis as a
child, hyperlipidemia, tobacco use he quit in 2017. Presented here with concern for black stool. Denies any prior GI bleeds or issues. Noted some abdominal discomfort. He notes the abdominal pain to be relatively mild. It is episodic. Not
constant. Not eating related. CAT scan demonstrated some ulcerated plaque in the aorta, and infrarenal abdominal aorta with possible periaortitis.
Note in discussion with patient he does not specifically report fevers or chills, but he does note that he has been waking up drenched/sweating for the last few weeks.
On exam/ He is awake and alert. He is in no acute distress. Breathing is unlabored. Abdomen is soft, nondistended, nontender. Lower extremity with 2+ femoral and pedal pulses palpable bilaterally.
CT scan images reviewed last evening. He does have extensive atherosclerotic plaque throughout his abdominal aorta with some mural thrombus. This appears unchanged when I compared to scan from April of this year about a month or so ago. However
the changes in the anterior aspect of the infrarenal abdominal aorta outside of the aortic lumen/contour there is nonspecific stranding of the soft tissues suggesting inflammatory process.
Plan/CT findings concerning for periaortitis. Patient also notes potential night sweats recently. May have some inflammatory process. He is not on immunosuppressive therapy but rather immunotherapy (I do not know that that would result in an
inflammatory condition to the periaortic tissues). Recommend repeat CAT scan (CT angiogram abdomen/pelvis) 24 to 48 hours following initial scan to make sure no progression. Would recommend rheumatology evaluation for inflammatory process. Would
recommend GI evaluation for black stools. If any fever noted, consider blood cultures. But currently afebrile with no evidence of leukocytosis.
--- NOTE | 2024-06-22 08:23 | CON.VAS ---
Consultation
Consultation Request
Date/Time Consultation Performed: 06/22/24 0830
Requesting Provider: Hospitalist
Performing Provider: Charleen Seals, AMIRA-C for Clement Oswald MD
Reason for Consultation: Aortitis
Medical History
-
Chief Complaint: ABD pain/Black stools
History of Present Illness:
This is a 73 year old male with significant past medical history for lung cancer, DVT, melanoma, and rheumatoid arthritis as a child who presented to [facility] on 06/21/2024 reporting dark black stools, dark urine, and intermittent colicky
abdominal pain. CT abdomen pelvis was obtained in ER which was concerning for possible periaortitis, prompting admission and vascular consultation. Denies any prior GI bleeds or issues. Noted some abdominal discomfort. He notes the abdominal pain
to be relatively mild. It is episodic. Not constant. Not eating related. CAT scan demonstrated some ulcerated plaque in the aorta, and infrarenal abdominal aorta with possible periaortitis. Patient denies fever, chills, nausea, and vomiting;
but he does note he has been experiencing night sweats causing him to wake up 'drenched in sweat. ' Denies rest pain, claudication, or prior vascular surgical intervention history.
Past Medical History
Past Medical History: Cancer (lung cancer (status post right upper lobe lobectomy completed chemotherapy a year ago and since on immunotherapy since December last session 2 weeks ago)), Hypercholesterolemia and Other (DVT, melanoma of right shoulder
status post resection, hyperlipidemia, peripheral neuropathy, rheumatoid arthritis as a child)
Past Surgical History: Appendectomy, Tonsilectomy and Other (RUL lung resection)
Social History
Tobacco: Former Smoker (Quit 2017)
Alcohol: None
Allergies / Home Medications
Allergy/AdvReac Type Severity Reaction Status Date / Time
amoxicillin Allergy Unknown Verified 05/15/24 11:58
eggplant Allergy joint pain Verified 06/21/24 22:53
and
swelling
pepper (genus Capsicum) Allergy GREEN Verified 06/21/24 22:53
PEPPERS-joint
pain and
swelling
potato Allergy joint pain Verified 06/21/24 22:53
and
swelling
tomato Allergy joint pain Verified 06/21/24 22:53
and
swelling
�Medication �Instructions �Recorded �Confirmed �Type
cholecalciferol (vitamin D3) 50 1,000 unit PO DAILY Supplement 07/22/20 06/21/24 History
mcg (2,000 unit) tablet
escitalopram oxalate 5 mg tablet 5 mg PO DAILY Mental Health/Anxiety 05/26/24 06/21/24 History
(Lexapro)
furosemide 20 mg tablet (Lasix) 20 mg PO DAILY Fluid 05/26/24 06/21/24 History
Retention/Swelling
rosuvastatin 5 mg tablet 5 mg PO QPM High Cholesterol 05/26/24 06/21/24 History
carboxymethylcellulose 0.5 1 drp BOTH EYES BIDPRN PRN DRYNESS 06/21/24 06/21/24 History
%-glycerin 0.9 % eye drops
(Refresh Optive)
gabapentin 100 mg capsule 200 mg PO QPM Pain 06/21/24 06/21/24 History
levothyroxine 25 mcg tablet 25 mcg PO DAILY Thyroid 06/21/24 06/21/24 History
(Synthroid)
magnesium oxide 400 mg PO DAILY Electrolyte 06/21/24 06/21/24 History
Repletion
polyethylene glycol 3350 17 gram 17 g PO DAILYPRN PRN CONSTIPATION 06/21/24 06/21/24 History
oral powder packet (Miralax)
tramadol 50 mg tablet 50 mg PO Q6HPRN PRN svere pain 06/21/24 06/21/24 History
Benadryl sleep 06/22/24 History
melatonin 10 mg tablet 20 mg PO DAILY Sleep 06/22/24 06/22/24 History
Review of Systems
-
History Source: Patient
Constitutional: Reports No Symptoms
EENT: Reports No Symptoms
Respiratory: Reports No Symptoms
Cardiac: Reports No Symptoms
Abdomen/GI: Reports Abdominal Pain (intermittent ) and Black Stools
: Reports Dark Urine
Musculoskeletal: Reports No Symptoms
Skin: Reports No Symptoms
Neurological: Reports No Symptoms
Endocrine: Reports No Symptoms
Physical Exam
Vital Signs
Temp Pulse Resp BP Pulse Ox
98.9 F 97 19 131/87 95
06/22/24 07:41 06/22/24 07:51 06/22/24 07:41 06/22/24 07:51 06/22/24 07:41
Lab Results
06/22/24 03:04
06/22/24 03:04
Physical Exam
General: No Apparent Distress
HEENT: Normocephalic, Anicteric and Atraumatic
Respiratory: Non Labored Respirations
Cardiac: Negative JVD
GI: Soft, Non Tender and Non Distended
Musculoskeletal: No Edema
Skin: Warm
Neuro: AO x 3
Psych: Calm
Pulses: Bilateral Femoral: +2, Bilateral Dorsalis Pedis: +2 and Bilateral Posterior Tibial: +2
Assessment / Plan
-
Assessment: 73 year old male presenting with intermittent mild abdominal pain and black tarry stools with CT findings concerning for periaortitis
Plan:
Recommend repeat CAT scan (CT angiogram abdomen/pelvis) 24 to 48 hours following initial scan to make sure no progression.
Would recommend rheumatology evaluation for inflammatory process.
Would recommend GI evaluation for black stools. If any fever noted, consider blood cultures. But currently afebrile with no evidence of leukocytosis.
--- NOTE | 2024-06-22 11:00 | CON.ONC ---
Impression
Impression
History of non-small cell lung cancer diagnosed in 2019. S/p wedge resection and 3 cycles of carboplatin and pemetrexed, discontinued for side effects
In 08/16, recurrence identified in multiple lung lobes and mediastinal nodes. Started on carboplatin and Taxol and transitioned to Opdivo/Yervoy with favorable response.
Reports intermittent diarrhea with immunotherapy, currently resolved
CT concering for aortitis, vascular following. appreciate input
Plan
Plan
Current symptomatology does not indicate that it is due to underlying disease or current immunotherapy.
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
Patient History
History of Present Illness
Patient is a 70-year-old male with past medical history of lung cancer, status post right upper lobe lobectomy and chemotherapy 1 year ago, currently on Opdivo/Yervoy with favorable response. Patient presents to [facility] with 1 episode of
dark stools and a sore throat and swelling in the neck, without fevers or chills, but with productive cough. CT imaging completed last night, showing concern for parotitis.
Today in conversation he reports minimal sleep and headaches. He reports no nausea, vomiting, diarrhea currently (gets diarrhea sometimes from immunotherapy), constipation repeat episodes of dark stools, abdominal cramping or chest pain/shortness
of breath. He does report feeling flutters in his chest and is noticed that his heart rate goes up as high as 160s. During my evaluation I noticed 3 separate occasions heart rate elevating between 120s and 160s. He also reports that since
admission he has been having pain with initiating urination stream.
Past-Medical/Surgical History
Lung cancer status post right upper lobe lobectomy, DVT, melanoma of right shoulder status post resection, hyperlipidemia, peripheral neuropathy, rheumatoid arthritis as a child
Patient Medication
�Medication �Instructions �Recorded �Confirmed �Last Taken �Type
cholecalciferol (vitamin D3) 50 1,000 unit PO DAILY Supplement 07/22/20 06/21/24 06/20/24 History
mcg (2,000 unit) tablet
escitalopram oxalate 5 mg tablet 5 mg PO DAILY Mental Health/Anxiety 05/26/24 06/21/24 06/20/24 History
(Lexapro)
furosemide 20 mg tablet (Lasix) 20 mg PO DAILY Fluid 05/26/24 06/21/24 06/20/24 History
Retention/Swelling
rosuvastatin 5 mg tablet 5 mg PO QPM High Cholesterol 05/26/24 06/21/24 06/20/24 History
carboxymethylcellulose 0.5 1 drp BOTH EYES BIDPRN PRN DRYNESS 06/21/24 06/21/24 Unknown History
%-glycerin 0.9 % eye drops
(Refresh Optive)
gabapentin 100 mg capsule 200 mg PO QPM Pain 06/21/24 06/21/24 06/20/24 History
levothyroxine 25 mcg tablet 25 mcg PO DAILY Thyroid 06/21/24 06/21/24 06/21/24 History
(Synthroid)
magnesium oxide 400 mg PO DAILY Electrolyte 06/21/24 06/21/24 06/20/24 History
Repletion
polyethylene glycol 3350 17 gram 17 g PO DAILYPRN PRN CONSTIPATION 06/21/24 06/21/24 06/20/24 History
oral powder packet (Miralax)
tramadol 50 mg tablet 50 mg PO Q6HPRN PRN svere pain 06/21/24 06/21/24 06/20/24 History
Benadryl sleep 06/22/24 Unknown History
melatonin 10 mg tablet 20 mg PO DAILY Sleep 06/22/24 06/22/24 Unknown History
Active Medications
Generic Name Dose Route Start Last Admin
Trade Name Freq PRN Reason Stop Dose Admin
Artificial Tears 1 drops 06/21/24 22:55
Artificial Tears Pf (Refresh) 10 Drop Droperette BOTH EYES 07/19/24 22:54
BIDPRN PRN
DRYNESS
Cholecalciferol 25 mcg 06/22/24 08:00 06/22/24 07:51
Cholecalciferol (Vitamin D3) 25 Mcg Tablet (1,000 Units) PO 07/20/24 07:59 25 mcg
DAILY VALERY Administration
Escitalopram Oxalate 5 mg 06/22/24 08:00 06/22/24 07:52
Escitalopram 5 Mg Tablet PO 07/20/24 07:59 5 mg
DAILY VALERY Administration
Furosemide 20 mg 06/22/24 08:00 06/22/24 07:51
Furosemide 20 Mg Tablet PO 07/20/24 07:59 20 mg
DAILY VALERY Administration
Gabapentin 200 mg 06/22/24 18:00
Gabapentin 100 Mg Capsule PO 07/20/24 17:59
QPM VALERY
Heparin Sodium 5,000 units 06/22/24 08:00 06/22/24 07:52
Heparin 5,000 Units/Ml 1 Ml Vial SC 07/20/24 07:59 5,000 units
Q12 VALERY Administration
Levothyroxine Sodium 25 mcg 06/22/24 06:00 06/22/24 05:59
Levothyroxine 25 Mcg Tablet PO 07/20/24 05:59 25 mcg
DAILY @ 0600 VALERY Administration
Magnesium 84 mg 06/22/24 08:00 06/22/24 07:52
Magnesium Lactate 84 Mg Tablet PO 07/20/24 07:59 84 mg
DAILY VALERY Administration
Pantoprazole Sodium 40 mg 06/22/24 11:00
Pantoprazole Sodium 40 Mg/10 Ml Vial IV 07/20/24 10:59
BID VALERY
Polyethylene Glycol 17 grams 06/21/24 22:51
Polyethylene Glycol Powder 17 Grams Packet PO 07/19/24 22:50
DAILYPRN PRN
CONSTIPATION
Rosuvastatin Calcium 5 mg 06/22/24 18:00
Rosuvastatin (Crestor) 5 Mg Tablet PO 07/20/24 17:59
QPM VALERY
Sodium Chloride 0 flush 06/21/24 23:00
Sodium Chloride 0.9% (Flush) Syringe IV 07/19/24 22:59
PER PROTOCOL VALERY
Sodium Chloride 10 ml 06/22/24 11:00
Sodium Chloride 0.9% (Preservative Free) 10 Ml Vial IV 07/20/24 10:59
Q12 VALERY
Tramadol HCl 50 mg 06/21/24 22:51 06/22/24 01:00
Tramadol Hcl 50 Mg Tablet PO 07/19/24 22:50 50 mg
Q6HPRN PRN Administration
severe pain
Review of Systems
-
History Source: Patient
Constitutional: Reports Sleep Disturbance and Night Sweats
Respiratory: Reports Cough
Cardiac: Reports Palpitations
GI: Reports No Symptoms
: Reports Other (Pain with initiating stream)
Psych: Reports No Symptoms
Physical Exam
-
General: Well Developed, Well Nourished, Comfortable and Conversant
Cardiology: Normal Sinus Rhythm, S1 and S2
Pulmonary: Clear
GI: Soft
Musculoskeletal: No Clubbing, No Cyanosis and No Edema
Skin: Warm and Dry
Psych: Calm
Labs
Lab Results
WBC 8.0 10^3/uL (4.8-10.8) 06/22/24 03:04
RBC 2.91 10^6/uL (4.70-6.10) L 06/22/24 03:04
Hgb 10.2 g/dL (13.0-18.0) L 06/22/24 03:04
Hct 29.6 % (39.0-52.0) L 06/22/24 03:04
MCV 101.7 fL (80.0-94.0) H 06/22/24 03:04
MCH 35.1 pg (27.0-31.0) H 06/22/24 03:04
MCHC 34.5 g/dL (33.0-37.0) 06/22/24 03:04
RDW 12.6 % (11.5-14.5) 06/22/24 03:04
Plt Count 175 10^3/uL (130-400) 06/22/24 03:04
MPV 10.3 fL (7.4-10.4) 06/22/24 03:04
Abs Immat Gran (auto) 0.0 10^3/uL (0-0.05) 06/22/24 03:04
Absolute Neuts (auto) 5.6 10^3/uL (1.4-6.5) 06/22/24 03:04
Absolute Lymphs (auto) 1.3 10^3/uL (1.2-3.4) 06/22/24 03:04
Absolute Monos (auto) 0.9 10^3/uL (0.1-0.6) H 06/22/24 03:04
Absolute Eos (auto) 0.2 10^3/uL (0-0.7) 06/22/24 03:04
Absolute Basos (auto) 0.0 10^3/uL (0-0.2) 06/22/24 03:04
Immature Gran % 0.3 % (0-0.5) 06/22/24 03:04
Neutrophils % 69.6 % (42.2-75.2) 06/22/24 03:04
Lymphocytes % 15.9 % (20.5-51.1) L 06/22/24 03:04
Monocytes % 11.4 % (1.7-9.3) H 06/22/24 03:04
Eosinophils % 2.5 % (0-6) 06/22/24 03:04
Basophils % 0.3 % (0-2) 06/22/24 03:04
Creatinine 0.7 mg/dL (0.7-1.3) 06/22/24 03:04
Vital Signs
Vital Signs
Temp Pulse Resp BP Pulse Ox
98.9 F 104 19 131/87 96
06/22/24 07:41 06/22/24 10:45 06/22/24 07:41 06/22/24 07:51 06/22/24 08:00
[2024-06-22 11:37] LABS: Iron 38 ug/dl (49-181)
[2024-06-22 11:46] LABS: Percent Saturation 20 % (20-50); Total Iron Binding Capacity 187 ug/dl (261-462)
[2024-06-22] MEDS: NSS (PRESERVATIVE FREE) 10 ML IV (11:54)
[2024-06-22] MEDS: PROTONIX IV 40 MG IV (11:54)
--- NOTE | 2024-06-22 12:02 | CM ---
Addendum entered by Desi Billingsley RN 06/22/24 12:54:
Notified by Dr Pratt that patient will need emergent transfer to [facility], accepted by hospitalist Dr Desi Wilde, to be seen by an inpatient iuss acoustic analyst at [place]. Patient will need ALS transport for cardiac monitoring.
Plan transfer to [facility] when bed is available.
Original Note:
Patient with Hx lung cancer, RUL lobectomy on immunotherapy, with Dx abdominal pain and black tarry stools with concern for periaortitis. Room air.
Met with patient who resides with his in a 2 story house with 4 GERTRUDE.
The patient was independent in ADLs and ambulation, and able to do the stairs at home.
The patient says he has to provide assistance at times to his with her mobility.
He was able to transport himself to his medical appointments.
The patient has no DME, prior VN or SNF.
PCP - Jade Thacker
Pharmacy - [facility]
CM Consult: Advanced Directive
AD Form provided with explanations, including to provide to nurse to copy, if any wishes are made that effect care while here.
CM continuing to follow.
Plan home.
--- NOTE | 2024-06-22 12:43 | CON.CAR ---
Addendum entered and electronically signed by Cande Wilcox MD 06/22/24 15:55:
I saw and examined the patient.
The Auto Transmission Specialist's note was reviewed and I agree with the note.
Patient seen and independently examined by me. He denies chest pain but notes palpitations. Euvolemic on exam.
Comment: Patient presented to the ER with complex medical history. CT scan with concern for possible aortitis. Evaluation underway. Currently hemodynamically stable clinically. Being seen by vascular and other consultants.
-Will check echocardiogram to assess LV function and exclude valvular heart disease. Discussed with patient.
-Patient with short runs of PAT on the monitor 150 to 160 bpm. Patient can feel the short-lived runs of PAT. He thinks he may have had them at home but was not paying much attention. EKG sinus rhythm with PACs. He is agreeable to low-dose
beta-melissa which we have started. Hopefully this will quiet down arrhythmia. We have not seen atrial fibrillation. No indication for anticoagulation at this time.
-Coronary calcification noted on CT scan. Continue risk factor modification.
-Defer treatment/evaluation of possible aortitis to primary service/vascular/rheumatology
Original Note:
Consultation
Consultation Request
Date/Time Consultation Requested: 06/22/24, 1137
Date/Time Consultation Performed: 06/22/24, 1315
Requesting Provider: Cong Diaz DO
Performing Provider: KB Larsen for Cande Wilcox MD
Reason for Consultation: possible aortitis, tachycardia
Medical History
-
Chief Complaint: hematuria, rectal bleeding, bloating, abdominal pain
History of Present Illness:
73-year-old male with past medical history of lung cancer status post right upper lobectomy, chemotherapy, and current treatment with immunotherapy (followed by Dr. Chandra), pericarditis, DVT, hyperlipidemia, chest pain (diagnosed with
pericarditis 04/16- admission) who presented to the ED 06/21/2024 due to concerns of hematuria and dark stools as well as bloating and abdominal pain. He reports night sweats for the past few weeks. He has had no fevers or chills. Initial
evaluation revealed stable hemoglobin at 10.3, heme-negative stool, no blood in urine. CT of the abdomen showed extensive atherosclerotic plaque throughout the abdominal aorta with mural thrombus with concerns for aortitis. His case was discussed
with vascular who advised admission and rheumatologic workup as well as CTA of the abdomen and pelvis after 24-48 hrs. Cardiology is consulted to evaluate need for echocardiogram and also evaluate runs of tachycardia on telemetry.
Past medical history:
Lung cancer status post right upper lobe lobectomy, completed chemotherapy, currently on immunotherapy since 01/15, last session 2 weeks ago
History of right LE DVT without PE 05/14
hyperlipidemia
Pericarditis- admission to for CP 04/16
Former smoker
Coronary calcification on CT scan
Malignant melanoma right shoulder 1983 with recurrence 2020 status post excision
Arthritis
Rheumatoid arthritis as a child
Right paratracheal and left hilar adenopathy
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
Past Medical History
Past Medical History: Other (As above)
Past Surgical History: Appendectomy, Tonsilectomy and Other (Right upper lobe lobectomy)
Social History
Tobacco: Former Smoker (Quit 05/11)
Personal:
Family History
Family History: Other (Father 69-asbestosis, mother 86, sister with lupus and breast cancer, both sisters with peripheral neuropathy, brother from lung cancer)
Allergies / Home Medications
Allergy/AdvReac Type Severity Reaction Status Date / Time
amoxicillin Allergy Unknown Verified 05/15/24 11:58
eggplant Allergy joint pain Verified 06/21/24 22:53
and
swelling
pepper (genus Capsicum) Allergy GREEN Verified 06/21/24 22:53
PEPPERS-joint
pain and
swelling
potato Allergy joint pain Verified 06/21/24 22:53
and
swelling
tomato Allergy joint pain Verified 06/21/24 22:53
and
swelling
�Medication �Instructions �Recorded �Confirmed �Type
cholecalciferol (vitamin D3) 50 1,000 unit PO DAILY Supplement 07/22/20 06/21/24 History
mcg (2,000 unit) tablet
escitalopram oxalate 5 mg tablet 5 mg PO DAILY Mental Health/Anxiety 05/26/24 06/21/24 History
(Lexapro)
furosemide 20 mg tablet (Lasix) 20 mg PO DAILY Fluid 05/26/24 06/21/24 History
Retention/Swelling
rosuvastatin 5 mg tablet 5 mg PO QPM High Cholesterol 05/26/24 06/21/24 History
carboxymethylcellulose 0.5 1 drp BOTH EYES BIDPRN PRN DRYNESS 06/21/24 06/21/24 History
%-glycerin 0.9 % eye drops
(Refresh Optive)
gabapentin 100 mg capsule 200 mg PO QPM Pain 06/21/24 06/21/24 History
levothyroxine 25 mcg tablet 25 mcg PO DAILY Thyroid 06/21/24 06/21/24 History
(Synthroid)
magnesium oxide 400 mg PO DAILY Electrolyte 06/21/24 06/21/24 History
Repletion
polyethylene glycol 3350 17 gram 17 g PO DAILYPRN PRN CONSTIPATION 06/21/24 06/21/24 History
oral powder packet (Miralax)
tramadol 50 mg tablet 50 mg PO Q6HPRN PRN svere pain 06/21/24 06/21/24 History
Benadryl sleep 06/22/24 History
melatonin 10 mg tablet 20 mg PO DAILY Sleep 06/22/24 06/22/24 History
Review of Systems
-
History Source: Patient
All other systems: Negative unless noted
Physical Exam
Vital Signs
Temp Pulse Resp BP Pulse Ox
98.3 F 104 19 131/87 96
06/22/24 11:10 06/22/24 10:45 06/22/24 07:41 06/22/24 07:51 06/22/24 08:00
Lab Results
06/22/24 03:04
06/22/24 03:04
Physical Exam
General: Well Developed
HEENT: Normocephalic
Respiratory: Clear
Cardiac: Regular Rhythm
Musculoskeletal: No Edema
Neuro: AO x 3
Psych: Calm
Impression / Plan
-
PCP: Jade Thacker
Primary precision filer hand: Shai Sosa MD
Impression:
Aortitis
Atrial tachycardia
Lung cancer status post right upper lobe lobectomy, completed chemotherapy, currently on immunotherapy since 01/15, last session 2 weeks ago
History of DVT
hyperlipidemia
Pericarditis
Former smoker
Coronary calcification on CT scan
Malignant melanoma right shoulder 1983 with recurrence 2020 status post excision
Arthritis
Rheumatoid arthritis as a child
Right paratracheal and left hilar adenopathy
Cardiac diagnostics:
Echocardiogram 12/27/2023: Normal LV size and function. EF 60%, normal diastolic function, normal RV size and function. Structurally normal valves with no significant stenosis or regurgitation.
Stress echo 07/17: No ischemia at 8 METS, low risk
Telemetry personally reviewed: Normal sinus rhythm with paroxysmal atrial tachycardia
Plan:
73-year-old male with past medical history of lung cancer status post right upper lobectomy, chemotherapy, and current treatment with immunotherapy (followed by Dr. Chandra), pericarditis, DVT, hyperlipidemia, chest pain (diagnosed with
pericarditis 04/16- admission) who presented to the ED 06/21/2024 due to concerns of hematuria and dark stools as well as bloating and abdominal pain. He reports night sweats for the past few week but no fevers or chills. Initial evaluation
revealed stable hemoglobin at 10.3, heme-negative stool, no blood in urine. CT of the abdomen showed extensive atherosclerotic plaque throughout the abdominal aorta with mural thrombus with concerns for aortitis. His case was discussed with
vascular who advised admission and rheumatologic workup as well as CTA of the abdomen and pelvis. Cardiology is consulted to evaluate need for echocardiogram and also evaluate runs of tachycardia on telemetry.
Patient has had no chest pain.
1.Aortitis-Abdominal CT concerning for aortitis. Will check echocardiogram to rule out cardiac involvement. Also check twelve-lead EKG for baseline. Order for both have already been placed by our service.
Rheumatologic workup in process. To get repeat CT angio of the abdomen pelvis in 24 to 48 hours to evaluate for progression.
2. Atrial tachycardia-telemetry personally reviewed by me shows normal sinus rhythm with runs of atrial tachycardia to the 150-160 BPM range. Check twelve-lead EKG. Will start low-dose beta-melissa. Order placed by me.
3. Coronary calcifications on CT. No anginal symptoms, continue medical therapy with statin, BP control, smoking cessation.
4. Hyperlipidemia: On rosuvastatin. Follow lipids in outpatient setting.
5. History of pericarditis. No current symptoms.
[2024-06-22 12:45] LABS: Vitamin B12 773 pg/ml (239-931)
--- NOTE | 2024-06-22 12:47 | CON.GI ---
Addendum entered and electronically signed by Elise Flores Do, MD 06/22/24 15:55:
I saw and examined the patient.
The FUR MIXER OPERATOR's note was reviewed and I agree with the note.
Comment: Tramaine is a 73yo M with h/o RA, remote melanoma and recurrent lung cancer s/p lobectomy s/p chemo with immunotherapy last 2 wks ago who presents with dark stools that resolved. He reports BMs are now brown heme neg in ER. He refused
rectal exam today. C/o fatigue and poor appetite. Vitals reviewed. NTTP, NABS. Labs stable Hbg 10 to 10 to 10
Impression
- Dark stools now resolved
Heme neg in ER declines rectal exam today
- Aortitis
- Lung cancer s/p lobectomy and immunotherapy
- H/o melanoma
- h/o RA
Recommendations
- C/w PPI daily
- C/w diet
- H/H stable
- He declines rectal exam
- At this juncture he declines any GI endoscopies which is reasonable given his other active medical issues and pending transfer to [facility]
GI will sign off please call for questions.
Original Note:
Consultation
-
Date/Time Consultation Requested: 06/22/24 1030
Date/Time Consultation Performed: 06/22/24 1245
Requesting Provider: Mic Pratt MD
Performing Provider: KB Stover, Elise Pitts MD
Reason for Consultation: black stools
Medical History
Chief Complaint / HPI
Chief Complaint: black stool
History of Present Illness:
Pt is a 73yo with hx hypercholesterolemia, RA as child, neuropathy, DVT, melanoma shoulder with resection/mohs surgery, and recurrence lung CA with prior lobectomy with prior chemo and current immunotherapy (Opdivo/Yervoy)with onset of dark urine
possible blood then black stools. He admitted to some abdominal pain and bloating in ER that he currently declines. He was noted in ER with hbg 10.3 and brown heme neg stool in ER and further abdominal pain after reassessment. CT on admission with
mixed density plaque in descending thoracic and abdominal aorta with new stranding of infrarenal abdominal aorta can be seen with aortitis. Pt has been seen by vascular and recommended follow up CT in AM, rheumatology evaluation and GI eval with
black stools.
In reviewing with patient noted with one looser black stool yesterday then heme neg in ER and now reports brown stool today. He also report sore throat and swelling in neck. He currently denies hx EGD or colonoscopy in past. He denies
odynophagia, dysphagia, GERD, nausea, vomiting, abdominal pain, diarrhea, constipation or red blood in stool.
Past Medical History
Past Medical History: Cancer (lung CA with resection, chemo, immunotherapy, malignant melanoma right shoulder 1983 with recurrence 2019), Hypercholesterolemia, Psychiatric (depression) and Other (arthritis, neuropathy, PNA, DVT, paratracheal and
left hilar adenopathy, pericarditis )
Past Surgical History: Appendectomy and Other (Mohns procedure with skin graft, cataract surgery, lobectomy 2020)
Social History
Tobacco: Former Smoker
Alcohol: None
Drug: Marijuana (occasional last several months ago )
Personal:
Living: With Family
Employment: Other (currently not working)
Family History
Family History: Reviewed & Not Pertinent
Allergies / Home Medications
Allergy/AdvReac Type Severity Reaction Status Date / Time
amoxicillin Allergy Unknown Verified 05/15/24 11:58
eggplant Allergy joint pain Verified 06/21/24 22:53
and
swelling
pepper (genus Capsicum) Allergy GREEN Verified 06/21/24 22:53
PEPPERS-joint
pain and
swelling
potato Allergy joint pain Verified 06/21/24 22:53
and
swelling
tomato Allergy joint pain Verified 06/21/24 22:53
and
swelling
�Medication �Instructions �Recorded
cholecalciferol (vitamin D3) 50 1,000 unit PO DAILY Supplement 07/22/20
mcg (2,000 unit) tablet
escitalopram oxalate 5 mg tablet 5 mg PO DAILY Mental Health/Anxiety 05/26/24
(Lexapro)
furosemide 20 mg tablet (Lasix) 20 mg PO DAILY Fluid 05/26/24
Retention/Swelling
rosuvastatin 5 mg tablet 5 mg PO QPM High Cholesterol 05/26/24
carboxymethylcellulose 0.5 1 drp BOTH EYES BIDPRN PRN DRYNESS 06/21/24
%-glycerin 0.9 % eye drops
(Refresh Optive)
gabapentin 100 mg capsule 200 mg PO QPM Pain 06/21/24
levothyroxine 25 mcg tablet 25 mcg PO DAILY Thyroid 06/21/24
(Synthroid)
magnesium oxide 400 mg PO DAILY Electrolyte 06/21/24
Repletion
polyethylene glycol 3350 17 gram 17 g PO DAILYPRN PRN CONSTIPATION 06/21/24
oral powder packet (Miralax)
tramadol 50 mg tablet 50 mg PO Q6HPRN PRN svere pain 06/21/24
Benadryl sleep 06/22/24
melatonin 10 mg tablet 20 mg PO DAILY Sleep 06/22/24
Review of Systems
-
History Source: Patient
Constitutional: Reports Weight Gain
EENT: Reports No Symptoms
Respiratory: Reports No Symptoms
Cardiac: Reports No Symptoms
Abdomen/GI: Reports Abdominal Pain (in ER now declines ) and Black Stools (prior to admission, heme neg in ER and now reports brown stools)
: Reports Other (dark urine on admission )
Musculoskeletal: Reports No Symptoms
Skin: Reports No Symptoms
Neurological: Reports Weakness
Endocrine: Reports No Symptoms
Hematologic/Lymphatic: Reports Bleeding
Vital Signs
Temp Pulse Resp BP Pulse Ox
98.3 F 104 19 131/87 96
06/22/24 11:10 06/22/24 10:45 06/22/24 07:41 06/22/24 07:51 06/22/24 08:00
Physical Exam
Exam
General: Well Developed, Well Nourished and No Apparent Distress
HEENT: Normocephalic and Anicteric
Respiratory: Clear
Cardiac: Other (tachy)
GI: Soft, Non Tender and Non Distended
Rectal: Other (pt declines heme neg in ER)
Musculoskeletal: No Clubbing and No Cyanosis
Skin: Warm and Dry
Neuro: Awake, Alert and AO x 3
Psych: Calm
Results
WBC 8.0 10^3/uL (4.8-10.8) 06/22/24 03:04
Hgb 10.2 g/dL (13.0-18.0) L 06/22/24 03:04
Hct 29.6 % (39.0-52.0) L 06/22/24 03:04
MCV 101.7 fL (80.0-94.0) H 06/22/24 03:04
Plt Count 175 10^3/uL (130-400) 06/22/24 03:04
Absolute Neuts (auto) 5.6 10^3/uL (1.4-6.5) 06/22/24 03:04
PT 14.7 Sec (11.4-14.6) H 06/21/24 15:30
INR 1.14 06/21/24 15:30
APTT 34.0 Sec (23.4-35.0) 06/21/24 15:30
Sodium 139 mmol/L (135-145) 06/22/24 03:04
Potassium 3.5 mmol/L (3.5-5.1) 06/22/24 03:04
Chloride 104 mmol/L (98-107) 06/22/24 03:04
Carbon Dioxide 27 mmol/L (22-30) 06/22/24 03:04
BUN 8 mg/dl (9-20) L 06/22/24 03:04
Creatinine 0.7 mg/dL (0.7-1.3) 06/22/24 03:04
Calcium 8.4 mg/dl (8.4-10.2) 06/22/24 03:04
Total Bilirubin 0.9 mg/dl (0.2-1.3) 06/22/24 03:04
AST 19 U/L (17-59) 06/22/24 03:04
ALT 12 U/L (0-50) 06/22/24 03:04
Alkaline Phosphatase 76 U/L (38-126) 06/22/24 03:04
Lipase 24 U/L (23-300) 06/21/24 15:30
Diagnostic Image Results:
06/21/24 CT Abd/pelvis W Iv Cont
There is mixed density atherosclerotic plaque of the descending thoracic and abdominal aorta. There is new stranding surrounding the infrarenal abdominal aorta which is nonspecific however can be seen with aortitis.
Colonic diverticulosis without evidence of acute diverticulitis.
05/15/24 CT Chest/abd/pel W Iv Cont
No evidence of local tumor recurrence or metastatic disease. Stable 4 mm nodule in the left upper lobe on axial image 21, also present on PET/CT from 03/17/2024, presumably infectious/inflammatory.
No acute abnormality in the chest, abdomen, or pelvis.
Chronic/incidental findings as detailed in the body of the report.
05/15/24 CT neck
No acute or significant abnormality in the neck.
Atherosclerotic disease of the bilateral carotid arteries.
Multilevel cervical spondylosis.
Prior GI Procedures:
EGD: none
Colonoscopy: none
Assessment / Plan
-
Pt is a 73yo with hx hypercholesterolemia, RA as child, neuropathy, DVT, melanoma shoulder with resection/mohs surgery, and recurrence lung CA with prior lobectomy with prior chemo and current immunotherapy(Opdivo/Yervoy)with onset of dark urine
possible blood then black stools. He admitted to some abdominal pain and bloating in ER that he currently declines. He was noted in ER with hbg 10.3 and brown heme neg stool in ER and further abdominal pain after reassessment. CT on admission
with mixed density plaque in descending thoracic and abdominal aorta with new stranding of infrarenal abdominal aorta can be seen with aortitis. Pt has been seen by vascular and recommended follow up CT in AM, rheumatology evaluation and GI eval
with black stools.
-report of black stool on admission - heme neg in ER now brown stool today
-mild anemia
-CT concerning for possible aortitis
-tachycardia
-lung CA with resection, chemo and current immunotherapy
-sore throat with swelling in neck
other medical problems:
-RA as child
-hypercholesterolemia
-neuropathy
-DVT
-melanoma should with resection then recurrence
PLAN:
etiology of black stools unclear ? GI bleed vs other --Pt was heme neg in ER and declines repeat rectal exam
he reports brown stool today and sore reported loose stools with immunotherapy but no colitis noted on IV contrast only CT
continued work up for aortitis per vascular plan for CT in AM, monitor for fever
trend hbg and stool records
s/p oncology evaluation
for cards, rheumatology for inflammatory process
cont regular diet
-
-
Thank you for consultation and allowing me to participate in the patient's care. Please call the collection systems foreman GI physician during the after hours with any questions or concerns.
[2024-06-22] MEDS: TOPROL XL 25 MG PO (15:25)
[2024-06-22] MEDS: CRESTOR 5 MG PO (17:04)
[2024-06-22] MEDS: NEURONTIN 200 MG PO (17:04)
--- NOTE | 2024-06-22 20:55 | PTCARENOTE ---
Received pt from bret RAMIREZ. Pt is AAOx3. NSR/ sinus tach on the monitor. Pt HR jumps up to 150s and quickly breaks and goes back to 90s, KB Denson notified, PRN Lopressor for HR >130 sustained added (see MAR). Pt on RA O2 sat 95%, lungs clear.
BRP. Pt is laying in bed with call penn in reach.
[2024-06-23 05:39] VITALS: BP 150/68
[2024-06-23] MEDS: SYNTHROID 25 MCG PO (05:41)
[2024-06-23] MEDS: NSS (PRESERVATIVE FREE) 10 ML IV (08:11)
[2024-06-23] MEDS: HEPARIN 5000 UNITS SC (08:12)
[2024-06-23] MEDS: PROTONIX IV 40 MG IV (08:12)
[2024-06-23 08:51] LABS: % Basophils 0.3 % (0-2); % Immature Granulocytes 0.1 % (0-0.5); % Lymphocytes 15.9 % (20.5-51.1); % Monocytes 8.7 % (1.7-9.3); Absolute Eosinophils 0.2 10^3/uL (0-0.7); Absolute Lymphocytes 1.1 10^3/uL (1.2-3.4); Absolute Monocytes 0.6 10^3/uL (0.1-0.6); Hematocrit 29.6 % (39.0-52.0); Hemoglobin 10.3 g/dL (13.0-18.0); Mean Corp Hgb Conc. 34.8 g/dL (33.0-37.0); Mean Corpuscular Volume 97.7 fL (80.0-94.0); Mean Platelet Volume 10.5 fL (7.4-10.4); Nucleated Red Blood Cells % 0 % (-); Platelet Count 201 10^3/uL (130-400); Red Blood Cell Count 3.03 10^6/uL (4.70-6.10); Red Cell Dist. Width 12.5 % (11.5-14.5)
[2024-06-23 09:11] VITALS: BP 144/95
[2024-06-23] MEDS: LEXAPRO 5 MG PO (09:11)
[2024-06-23] MEDS: MAG-TAB SR 84 MG PO (09:12)
[2024-06-23] MEDS: VITAMIN D3 (cholecalciferol) 25 MCG PO (09:12)
[2024-06-23] MEDS: LASIX 20 MG PO (09:12)
[2024-06-23 09:22] LABS: ALT (SGPT) 11 U/L (0-50); AST (SGOT) 20 U/L (17-59); Albumin 3.3 g/dl (3.5-5.0); Alkaline Phosphatase 75 U/L (38-126); Blood Urea Nitrogen 5 mg/dl (9-20); Calcium 8.7 mg/dl (8.4-10.2); Carbon Dioxide 27 mmol/L (22-30); Chloride 101 mmol/L (98-107); Estimated Creatinine Clearance 90 ml/min; Glucose 84 mg/dl (70-99); Potassium 3.1 mmol/L (3.5-5.1); Sodium 138 mmol/L (135-145); Total Bilirubin 0.9 mg/dl (0.2-1.3); Total Protein 5.7 g/dl (6.3-8.2); eGFR > 60.00
[2024-06-23] MEDS: TOPROL XL PO (09:22)
--- NOTE | 2024-06-23 09:33 | W.PN.ONC2 ---
Today's Communication / Plan
-
No change in recommendations today, awaiting other services input prior to considering immunotherapy as cause of aortitis. As mentioned only 1 case report shows association of immunotherapy use with development of aortitis. Appreciate input from
other consulting services.
Impression
Impression
History of non-small cell lung cancer diagnosed in 2019. S/p wedge resection and 3 cycles of carboplatin and pemetrexed, discontinued for side effects
In 08/16, recurrence identified in multiple lung lobes and mediastinal nodes. Started on carboplatin and Taxol and transitioned to Opdivo/Yervoy with favorable response.
Reports intermittent diarrhea with immunotherapy, currently resolved
CT concering for aortitis, vascular following. appreciate input
Plan
Plan
Current symptomatology does not indicate that it is due to underlying disease or current immunotherapy.
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
Subjective/Objective
Chief Complaint
Oncology follow-up
Subjective
Vital Signs:
Vital Signs
Temp Pulse Resp BP Pulse Ox
98.3 F 108 19 144/95 83
06/23/24 07:38 06/23/24 09:12 06/22/24 07:41 06/23/24 09:12 06/23/24 05:39
Lab Results:
Laboratory Data
WBC 7.0 10^3/uL (4.8-10.8) 06/23/24 08:26
Hgb 10.3 g/dL (13.0-18.0) L 06/23/24 08:26
Plt Count 201 10^3/uL (130-400) 06/23/24 08:26
PT 14.7 Sec (11.4-14.6) H 06/21/24 15:30
INR 1.14 06/21/24 15:30
APTT 34.0 Sec (23.4-35.0) 06/21/24 15:30
eGFR > 60.00 06/23/24 08:26
Orders
Orders
Orders From Last 24 Hours
06/22/24 11:37
CARDIOLOGY CONSULT Routine
--- NOTE | 2024-06-23 09:41 | PTCARENOTE ---
Pt AAOx3, awaiting bed at [place]. Pt to cat scan and back . Took pills whole NSR with occ ST . Ra no S/S of distress.
--- NOTE | 2024-06-23 10:35 | W.PN.CARDCBS ---
Addendum entered and electronically signed by Christine Rush DO 06/23/24 13:08:
I saw and examined the patient.
The Liaison Inspection Laboratory Assistant's note was reviewed and I agree with the note.
Comment: Patient was seen and examined with cardiac PA. Just returned from repeat CT scan. Plan for transfer to [facility], pending bed.
GEN: No distress, awake, Ox3
HEENT: supple, anicteric, mmm
LUNGS: CTA, no wheezes/rales
CV: Reg, S1/S2, 10/30 syst LSB
ABD: soft, BS+, NT/ND
EXT: No edema
Plan:
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
-Echocardiogram showed normal LV function and valvular structures with no evidence of inflammation.
-Rheumatologic workup in process.
-Repeat CT angio of the abdomen pelvis today, 06/23/2024-Results pending
-To be transferred to [facility] for further evaluation of aortitis. Awaiting bed.
Atrial tachycardia
-telemetry personally reviewed by me shows normal sinus rhythm with continued runs of atrial tachycardia to the 150-160 BPM range.
-Start metoprolol tartrate 25 mg every 6 hours.
Coronary calcifications on CT. No anginal symptoms, continue medical therapy with statin, BP control, smoking cessation.
Hyperlipidemia: On rosuvastatin. Follow lipids in outpatient setting.
History of pericarditis. No current symptoms.
Hypokalemia. K3.1 04/23/2024- potassium repletion ordered by primary service.
Original Note:
Today's Communication / Plan
-
Change Toprol to metoprolol titrate 25 mg every 6 hours for better control of atrial tachycardia
Echo showed normal LV size and function, no valvular heart disease
Impression / Plan
-
PCP: Jade Thacker
Primary deli cook: Shai Sosa MD
Impression:
Aortitis
Atrial tachycardia
Hypokalemia-K 3.1 06/23/2024
Lung cancer status post right upper lobe lobectomy, completed chemotherapy, currently on immunotherapy since 01/15, last session 2 weeks ago
History of DVT
hyperlipidemia
Pericarditis
Former smoker
Coronary calcification on CT scan
Malignant melanoma right shoulder 1983 with recurrence 2020 status post excision
Arthritis
Rheumatoid arthritis as a child
Right paratracheal and left hilar adenopathy
Cardiac diagnostics:
Echocardiogram 12/27/2023: Normal LV size and function. EF 60%, normal diastolic function, normal RV size and function. Structurally normal valves with no significant stenosis or regurgitation.
Stress echo 07/17: No ischemia at 8 METS, low risk
Telemetry personally reviewed: Normal sinus rhythm HR 90s, with frequent runs paroxysmal atrial tachycardia
Echocardiogram 06/22/2024: Normal LV size and function, EF 55 to 60%, normal aortic valve, normal aortic root.
Plan:
73-year-old male with past medical history of lung cancer status post right upper lobectomy, chemotherapy, and current treatment with immunotherapy (followed by Dr. Chandra), pericarditis, DVT, hyperlipidemia, chest pain (diagnosed with
pericarditis 04/16- admission) who presented to the ED 06/21/2024 due to concerns of hematuria and dark stools as well as bloating and abdominal pain. He reports night sweats for the past few week but no fevers or chills. Initial evaluation
revealed stable hemoglobin at 10.3, heme-negative stool, no blood in urine. CT of the abdomen showed extensive atherosclerotic plaque throughout the abdominal aorta with mural thrombus with concerns for aortitis. His case was discussed with
vascular who advised admission and rheumatologic workup as well as CTA of the abdomen and pelvis. Cardiology was consulted to evaluate need for echocardiogram and also evaluate runs of tachycardia on telemetry. Echo 06/22/2024 showed normal LV
size and function, EF 55 to 60%, normal aortic valve, normal aortic root. He was started on Toprol 25 mg yesterday for PAT. He is getting a follow-up CTA of the abdomen and pelvis today.
Patient feels palpitations with runs of AT. He has had no chest pain, shortness of breath, lightheadedness.
1.Aortitis-Abdominal CT concerning for aortitis. Echocardiogram showed normal LV function and valvular structures with no evidence of inflammation.
Rheumatologic workup in process. To get repeat CT angio of the abdomen pelvis today, 06/23/2024. To be transferred to [facility] for further evaluation of aortitis. Awaiting bed.
2. Atrial tachycardia-telemetry personally reviewed by me shows normal sinus rhythm with continued runs of atrial tachycardia to the 150-160 BPM range. Started Toprol 25 mg yesterday. Will change to metoprolol tartrate 25 mg every 6 hours. Order
placed by me. Continue on telemetry.
3. Coronary calcifications on CT. No anginal symptoms, continue medical therapy with statin, BP control, smoking cessation.
4. Hyperlipidemia: On rosuvastatin. Follow lipids in outpatient setting.
5. History of pericarditis. No current symptoms.
6. Hypokalemia. K3.1 04/23/2024- potassium repletion ordered by primary service.
Progress Note - Boat Operator
Subjective
Date of Service: June 23, 2024
Patient feels palpitations with runs of AT. He has had no chest pain, shortness of breath, lightheadedness.
Echo yesterday showed normal LV size and function, normal aortic valve and aortic root, structurally normal heart valves
Just got back from CT angio abdomen
Objective
Labs:
06/23/24 08:26
06/23/24 08:26
Labs
Hgb 10.3 g/dL (13.0-18.0) L 06/23/24 08:26
Hct 29.6 % (39.0-52.0) L 06/23/24 08:26
Plt Count 201 10^3/uL (130-400) 06/23/24 08:26
PT 14.7 Sec (11.4-14.6) H 06/21/24 15:30
INR 1.14 06/21/24 15:30
APTT 34.0 Sec (23.4-35.0) 06/21/24 15:30
Sodium 138 mmol/L (135-145) 06/23/24 08:26
Potassium 3.1 mmol/L (3.5-5.1) L 06/23/24 08:26
BUN 5 mg/dl (9-20) L 06/23/24 08:26
Creatinine 0.7 mg/dL (0.7-1.3) 06/23/24 08:26
Glucose 84 mg/dl (70-99) 06/23/24 08:26
Vital Signs and I&O:
Vital Signs
Temp Pulse Resp BP Pulse Ox
98.3 F 108 19 144/95 98
06/23/24 07:38 06/23/24 09:12 06/22/24 07:41 06/23/24 09:12 06/23/24 08:00
Vital Signs
Temp Pulse Resp BP Pulse Ox
98.3 F 108 19 144/95 98
06/23/24 07:38 06/23/24 09:12 06/22/24 07:41 06/23/24 09:12 06/23/24 08:00
Intake & Output
06/21/24 06/22/24 06/23/24 06/24/24
06:59 06:59 06:59 06:59
Intake Total 1370 / 1370
Output Total 200 / 200
Balance -200 / -200 1370 / 1370
Physical Exam
Physical Exam
GEN: No distress, awake, Ox3
HEENT: supple, anicteric, mmm
LUNGS: CTA, no wheezes/rales
CV: Reg, S1/S2, 1/6 syst LSB, no murmur
ABD: soft, BS+, NT/ND
EXT: No edema
NEURO: Gross non-focal
SKIN: No rash
[2024-06-23] MEDS: LOPRESSOR 25 MG PO ×2 (11:16→18:24)
[2024-06-23] MEDS: KCL 40 MEQ PO (11:17)
[2024-06-23 12:03] VITALS: BP 137/95
--- NOTE | 2024-06-23 16:06 | W.PN.HOSP.TC ---
Today's Communication/Plan
-
Await transfer to [place]
Assessment / Plan
Assessment / Plan
Physical Exam
General: Well Developed, Well Nourished and No Apparent Distress
HEENT: NormoCephalic, Moist mucous membranes, Atraumatic and Other (cervical lymphadenopathy, pharyngeal erythema )
Respiratory: Clear
Cardiac: S1/S2 and Regular Rhythm
GI: Soft, Non Tender, Non Distended and Normal Bowel Sounds
Musculoskeletal: No Cyanosis and No Edema
Skin: Warm. Dry.
Neuro: Nonfocal/grossly intact
Assessment/Plan
73-year-old male history of lung cancer status post lobectomy status post chemotherapy currently on immunotherapy, history of rheumatoid arthritis as a child, here for black stool and dark urine however stool brown here and Hemoccult negative and
urinalysis unremarkable. Also with several vague symptoms associated with immunotherapy including abdominal distention/pain, neck swelling, cervical lymphadenopathy, pharyngitis, consistent with vasculitis/underlying rheumatologic condition. CT
abdomen shows aortitis. Vascular consulted recommending repeating CT abdomen. Checked strep throat, mono, COVID. Will need rheumatology input.
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
-CT abdomen pelvis as per radiologist's report shows mixed density atherosclerotic plaque of the descending thoracic/abdominal aorta, new stranding surrounding the infrarenal abdominal aorta which can be seen with aortitis
-Vascular surgery consulted and planning on repeat CT scan tomorrow
-Echocardiogram completed on 06/22/24, results noted -- no signs of inflammation on echocardiogram
-Repeat CT (including chest in addition to abdomen/pelvis) completed on 06/23/24 with findings of possible aortitis
-Inpatient rheumatology service not available at [facility] -- therefore, transferring to [facility], as below
-On Lasix for abdominal distention/neck swelling
-Vascular surgery and cardiology consulted, appreciate their evaluation and recommendations
#Asymptomatic PACs
#Short Runs of PAT on Telemetry
-Noted on telemetry
-Metoprolol tartrate 25 mg every 6 hours started; continue
#Coronary calcification on CT scan
-Continue medical therapy with statin, BP control, smoking cessation
# Sore throat with cervical lymphadenopathy
-COVID negative
-check strep throat, monotest
-may need to check EBV, CMV
-Check TSH
# Black stool per patient
-Stools brown and Hemoccult negative
-Hemoglobin stable
-Gastroenterology consulted, appreciate their evaluation and recommendations
-Continue PPI
-Per report, patient declined rectal exam and any GI endoscopies which is reasonable given his other active medical issues and pending transfer to [facility]
# Dark urine per patient
-Urinalysis unremarkable
#Hypokalemia
-Replaced, monitor BMP
Lung cancer status post right upper lobe lobectomy/chemotherapy, now on immunotherapy
History of rheumatoid arthritis as a child as per patient
History of DVT
-Not on anticoagulation
Chronic macrocytic anemia
-Hemoglobin stable
History of melanoma right shoulder status post resection
Hyperlipidemia
-Continue statin
Peripheral neuropathy
-Continue gabapentin
Arthritis
-Continue tramadol
Anxiety/depression
-Continue Lexapro
Hypothyroidism
-Continue levothyroxine
Full code
DVT prophylaxis�heparin
Regular diet
TRANSFER TO [facility]
On June 22, 2024, I spoke to hospitalist Desi Wilde and wireless engineer Saumya Duval, both with [facility] ([facility]), and I called them to transfer the patient to [facility] due to fact that we do not have inpatient rheumatology
service at [facility]. I also spoke with a vascular surgeon at [facility] when speaking to them. Dr. Duval was wondering if we can do a biopsy of the aortitis seen on the initial CT imaging done during this hospitalization, however vascular
surgery here at [place] said that they cannot do that here. IR may or may not do a biopsy at [facility] once patient is transferred. Patient was accepted for transfer by Dr. Wilde to be transferred to [facility].
Physicians (see below) at the [facility] have asked for the images to be pushed to and uploaded to their system --> this was completed on June 23, 2024.
Anticipated Discharge: > 48 hours
Subjective/Interval History
-
Date of Service: June 23, 2024
Patient was seen and examined. He denied any black stools overnight, or any abdominal pain or any other new complaints.
Objective Data
-
Labs:
Laboratory Results
06/23/24
08:26
WBC 7.0
Hgb 10.3 L
Hct 29.6 L
Plt Count 201
Sodium 138
Potassium 3.1 L
Chloride 101
Carbon Dioxide 27
BUN 5 L
Creatinine 0.7
Glucose 84
Calcium 8.7
Total Bilirubin 0.9
AST 20
ALT 11
Alkaline Phosphatase 75
Vital Signs:
Vital Signs
Temp Pulse Resp BP Pulse Ox
98.3 F 94 19 137/95 98
06/23/24 11:09 06/23/24 12:03 06/22/24 07:41 06/23/24 12:03 06/23/24 08:00
I&O
06/22/24 06/23/24 06/24/24
06:59 06:59 06:59
Intake Total 1370 / 1370
Output Total 200 / 200
Balance -200 / -200 1370 / 1370
--- NOTE | 2024-06-23 16:16 | PTCARENOTE ---
Report to 4th floor [facility] Pt aware of tx . Awaiting bed at [place].
[2024-06-23 17:02] VITALS: BP 130/68
--- NOTE | 2024-06-23 17:08 | W.PN.UPDATE ---
Update Note
Progress Note Update
CT scan images reviewed. Mild possible periaortitis infrarenal abdominal aorta, appears possibly slightly improved compared to prior study. Regardless there is no severe stenosis of the aorta or aneurysmal degeneration. Patient does have diffuse
atherosclerotic plaque with mixed calcified as well as soft/ulcerated plaque throughout. Can follow-up in the office regarding all of this. Again defer to rheumatology for management of primary aortitis as there is no clear surgical indication for
any intervention at this time.
--- NOTE | 2024-06-23 17:13 | CM ---
Patient with Hx lung cancer, RUL lobectomy on immunotherapy, with Dx Abdominal pain/distention secondary to Aortitis concerning for vasculitis/lupus/other rheumatological condition. CT Abd/pelvis today. Room air. Transferred from IMU to today.
Plan transfer to [facility] by [facility] ambulance transport when bed is available.
[2024-06-23] MEDS: NEURONTIN 200 MG PO (18:01)
[2024-06-23] MEDS: CRESTOR 5 MG PO (18:01)
[2024-06-23 19:39] VITALS: BP 128/64
[2024-06-23] MEDS: HEPARIN SC (20:21)
[2024-06-23] MEDS: ULTRAM 50 MG PO (20:54)
[2024-06-23] MEDS: MELATONIN 10 MG PO (20:54)
[2024-06-23 22:38] VITALS: BP 131/68
--- NOTE | 2024-06-23 22:53 | TRANSFER ---
Report given to RN receiving patient at [place]. Report given to EMS/ACLS transferring the patient. Patient leaving with all belongings.
== END 2024-06-23 23:01 | disposition short-term general hospital (02) | DRG 546 ==
LOC: 4 EAST ACU 22:32
PROVIDERS: Physician Assistant; ADMITTING PHYSICIAN Hospitalist; ATTENDING PHYSICIAN Hospitalist; CONSULT PHYSICIAN Internal Medicine Cardiovascular Disease; CONSULT PHYSICIAN Internal Medicine Gastroenterology; CONSULT PHYSICIAN Internal Medicine Hematology & Oncology; CONSULT PHYSICIAN Surgery Vascular Surgery; EMERGENCY PHYSICIAN Emergency Medicine; FAMILY PHYSICIAN Family Medicine
DX: I77.6 Arteritis, unspecified (principal); C34.02 Malignant neoplasm of left main bronchus; R31.9 Hematuria, unspecified; E78.00 Pure hypercholesterolemia, unspecified; F32.A Depression, unspecified; F17.200 Nicotine dependence, unspecified, uncomplicated; G62.9 Polyneuropathy, unspecified; M08.00 Unspecified juvenile rheumatoid arthritis of unspecified site; R59.0 Localized enlarged lymph nodes; D53.9 Nutritional anemia, unspecified; F41.9 Anxiety disorder, unspecified; E87.6 Hypokalemia; R19.5 Other fecal abnormalities; J02.9 Acute pharyngitis, unspecified; R10.9 Unspecified abdominal pain; R61 Generalized hyperhidrosis; M47.812 Spondylosis without myelopathy or radiculopathy, cervical region; E06.3 Autoimmune thyroiditis; Z79.01 Long term (current) use of anticoagulants; Z79.890 Hormone replacement therapy; Z90.2 Acquired absence of lung [part of]; Z85.820 Personal history of malignant melanoma of skin; Z86.718 Personal history of other venous thrombosis and embolism; Z92.21 Personal history of antineoplastic chemotherapy; Z88.0 Allergy status to penicillin; Z91.018 Allergy to other foods; I25.10 Atherosclerotic heart disease of native coronary artery without angina pectoris; Z80.3 Family history of malignant neoplasm of breast; Z82.69 Family history of other diseases of the musculoskeletal system and connective tissue; Z80.1 Family history of malignant neoplasm of trachea, bronchus and lung; Z11.52 Encounter for screening for COVID-19
CPT/HCPCS: 71275; 74174; 74177; 80053; 81003; 81015; 82607; 82728; 82746; 82962; 83540; 83550; 83690; 83735; 84443; 85025; 85610; 85730; 86308; 86850; 86900; 86901; 87070; 87086; 87811; 87880; 93005; 93306; 96361; 96374; 99285; Q9967

== ENCOUNTER → 2024-10-12 14:03 | Outpatient (REF) | payer OTHER, SELFPAY | LOC: RAD 14:03 | PROVIDERS: ATTENDING PHYSICIAN Internal Medicine Hematology & Oncology | DX: C34.11 Malignant neoplasm of upper lobe, right bronchus or lung (principal); G64 Other disorders of peripheral nervous system | CPT/HCPCS: 71046 ==

== ENCOUNTER → 2024-10-17 09:52 | Outpatient (REF) | payer OTHER, SELFPAY | LOC: PET 09:52 | PROVIDERS: ATTENDING PHYSICIAN Internal Medicine Hematology & Oncology | DX: C34.11 Malignant neoplasm of upper lobe, right bronchus or lung (principal) | CPT/HCPCS: 78816; A9552 ==

== ENCOUNTER → 2024-12-29 13:58 | Outpatient (REF) | payer OTHER, SELFPAY | LOC: RAD 13:58 | PROVIDERS: ATTENDING PHYSICIAN Family Medicine | DX: R05.9 Cough, unspecified (principal) | CPT/HCPCS: 71046 ==

== ENCOUNTER → 2025-01-10 14:40 | Outpatient (REF) | payer OTHER, SELFPAY | LOC: REG 14:40 | PROVIDERS: ATTENDING PHYSICIAN Internal Medicine Critical Care Medicine | DX: R06.02 Shortness of breath (principal) | CPT/HCPCS: 71046 ==

== ENCOUNTER → 2025-05-28 15:03 | Outpatient (REF) | payer OTHER, SELFPAY | LOC: RAD 15:03 | PROVIDERS: ATTENDING PHYSICIAN Family Medicine | DX: R05.1 Acute cough (principal) | CPT/HCPCS: 71046 ==

== ENCOUNTER → 2025-07-20 13:07 | Outpatient (REF) | payer OTHER, SELFPAY | LOC: RAD 13:07 | PROVIDERS: ATTENDING PHYSICIAN Family Medicine | DX: J18.9 Pneumonia, unspecified organism (principal) | CPT/HCPCS: 71046 ==

== ENCOUNTER 2025-10-01 14:16 | Emergency (ER) | payer OTHER, SELFPAY ==
[2025-10-01 14:26] VITALS: BP 139/81
[2025-10-01 14:53] LABS: Hematocrit 40.2 % (39.0-52.0); Hemoglobin 13.9 g/dL (13.0-18.0); Mean Corp Hgb Conc. 34.6 g/dL (33.0-37.0); Mean Corpuscular Volume 95.9 fL (80.0-94.0); Nucleated Red Blood Cells % 0 % (-); Platelet Count 256 10^3/uL (130-400); Red Cell Dist. Width 12.2 % (11.5-14.5)
[2025-10-01 15:10] LABS: ALT (SGPT) 20 U/L (0-50); AST (SGOT) 29 U/L (17-59); Albumin 4.7 g/dl (3.5-5.0); Alkaline Phosphatase 84 U/L (38-126); Blood Urea Nitrogen 18 mg/dl (9-20); Calcium 9.5 mg/dl (8.4-10.2); Carbon Dioxide 25 mmol/L (22-30); Chloride 106 mmol/L (98-107); Glucose 95 mg/dl (70-99); Potassium 4.3 mmol/L (3.5-5.1); Sodium 137 mmol/L (135-145); Total Protein 7.8 g/dl (6.3-8.2); eGFR > 60.00
--- NOTE | 2025-10-01 17:16 | ED.GENMED ---
History of Present Illness
General
Chief Complaint: Change in Mental Status
Time Seen by Provider: 10/01/25 17:02
Nursing documentation reviewed up to this point in time: agreed with
History of Present Illness
History of Present Illness:
74-year-old male presents to the ER with his for evaluation of confusion and visual deficit present and worsening over the past few days. reports that he has become more forgetful over the last few weeks. Patient only reports that this
has been a predominant issue this week. Patient states that he cannot see anything in his right peripheral vision. He denies any syncope or trauma. He has been eating and drinking without difficulty. He is very frustrated by his difficulty with
his comprehension. He reports a global headache. No vomiting. No weakness to arms or legs. No difficulty with articulation of speech
He does have significant prior medical history of lung cancer and was considered to be in remission given a negative PET scan in June. No longer on chemo or immunotherapy. Patient also has a remote history of melanoma.
Past History
Past History
ED Past Medical History: Cancer (Lung) and Psychiatric (depression, LE DVT 05/14 on eliquis for 6 mos)
ED Past Surgical History: Appendectomy, Tonsilectomy and Other (RUL lung resection)
Social History
Tobacco: Smoker
Alcohol: None
Drug: None
Personal:
Living: with family
Review of Systems
Review of Systems
Allergies reviewed?: Yes
Phy Exam
Physical Exam
Physical Exam:
Patient is awake, alert, appears in no acute distress, head is NCAT, PERRL, EOMI mucous membranes moist, conjunctiva pink, heart regular rate and rhythm without murmurs or ectopy, lungs are clear to auscultation without wheezes rales or rhonchi, no
JVD, abdomen is soft and nontender on palpation, extremities without edema, GCS is 15, loss of vision and right lateral visual hayward both superior and inferior in the right eye only, no dysarthria, tongue is midline, difficulty with finger-nose
with the right upper extremity, no difficulty with rapid alternating movements, strength is 4 out of 5 x 4 extremities
Course
Orders/Labs/Results
Orders:
Orders
10/01/25 14:29
CT Head W/o Iv Contrast Urgent
Comment:
Reason For Exam: dizziness/confusion
10/01/25 14:42
Complete Blood Count/With Diff Urgent
Comprehensive Metabolic Panel Urgent
10/01/25 17:17
Dexamethasone Sod Phosphate [Decadron] 10 mg IV NOW STA
Levetiracetam Injectable [Keppra] 1,500 mg IV NOW STA
10/01/25 17:24
Urinalysis Reflex To Culture Urgent
Date Specimen was Collected: 10/01/25
Time Specimen was Collected: 14:30
Urine Microscopic Reflex Cult Urgent
10/01/25 17:29
PTT Urgent
Prothrombin Time Urgent
10/01/25 18:31
Acetaminophen [Tylenol] 1,000 mg PO NOW STA
Abnormal Lab Results
10/01/25 10/01/25 10/01/25
14:42 17:24 17:29
RBC 4.19 L 10^6/uL
(4.70-6.10)
MCV 95.9 H fL
(80.0-94.0)
MCH 33.2 H pg
(27.0-31.0)
Absolute Monos (auto) 0.9 H 10^3/uL
(0.1-0.6)
Lymphocytes % 20.3 L %
(20.5-51.1)
Monocytes % 9.9 H %
(1.7-9.3)
APTT 35.9 H Sec
(23.4-35.0)
Urine Ketones 1+ A
(Negative)
Urine Bacteria (Reflex) Few A
(Negative)
Urine Albumin (Reflex) 1+ A
(Neg - Trace)
12/08/25 14:42
10/01/25 14:42
CBC within normal limits. Chemistries within normal limits.
Vital Signs
Initial and Last Documented VS:
Initial Vital Signs
Temp Pulse Resp BP Pulse Ox
98.2 F 82 16 139/81 98
10/01/25 14:26 10/01/25 14:26 10/01/25 14:26 10/01/25 14:26 10/01/25 14:26
Last Documented Vital Signs
Temp Pulse Resp BP Pulse Ox
98.2 F 81 21 117/70 96
10/01/25 14:26 10/01/25 19:45 10/01/25 19:45 10/01/25 19:00 10/01/25 19:45
MDM/Problems Addressed
Differential Diagnosis Includes:
Differential diagnosis considered but not limited to intracranial hemorrhage, intracranial mass, stroke, occult infection along with other etiologies considered
Chronic conditions affecting care:
History of lung cancer, history of DVT (no longer on anticoagulation), hypothyroidism, former smoker
*Radiology
Radiology exam reviewed: radiology read reviewed (I reviewed CT head result with the radiologist, Dr. Bruno. Patient has a large ovoid mass with hemorrhage layering in the posterior aspect and slight subfalcine shift from left to right along with
edema in the left hemisphere with mass effect)
*Pulse Oximetry
SaO2: 98
Oxygen Mode of Delivery: Room air
Patient hypoxic: no
*Critical Care Note
Total Time (30-74mins, 75-104mins- exclusive of procedures): see note
comment:
Critical care statement: A total of 35 minutes of critical care time was provided for this patient. This includes management of unstable vital signs, evaluation of the patient at bedside, reviewing the patient's pertinent medical records, discussion
with consultants, review of old EKGs and review of pertinent medical records. This time with separate from time utilized to perform the aforementioned documented procedures
Update Note
Update Note:
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 I discussed with him need for transfer to higher level of care for both
neurosurgical and oncology evaluation. He is treated locally by Dr. Elizabeth Olvera and had previously been treated at [facility]. They are in agreement with transfer to [facility] for further care.
I reviewed full patient presentation with Dr. Luz Elena Santiago, neurosurgery at [facility]. She accepts patient in transfer as a level 0 to the neuro ICU for further treatment of new intracranial mass with layering hemorrhage and edema. Patient and
present at bedside agree. Transfer paperwork completed.
ED Attending Note
-
Portions of this chart may have been created with voice recognition software.� Occasional wrong word or��sound alike� substitutions may have occurred due to the inherent limitations of voice recognition software.
Discharge Plan
Departure
Patient Disposition: Acute Care Hospital
Date of Disposition: 10/01/25
Time of Disposition: 17:51
Discharge Problem:
Intracranial mass, Visual disturbance, Acute confusion
Prescriptions:
No Action
cholecalciferol (vitamin D3) 2,000 UNIT tablet
1,000 unit PO DAILY
furosemide [Lasix] 20 mg Tablet
20 mg PO DAILY
rosuvastatin 5 mg Tablet
5 mg PO QPM
escitalopram oxalate [Lexapro] 5 mg Tablet
5 mg PO DAILY
polyethylene glycol 3350 [Miralax] 17 gram Powder In Packet
17 g PO DAILYPRN PRN (Reason: CONSTIPATION)
levothyroxine [Synthroid] 25 mcg Tablet
25 mcg PO DAILY
gabapentin 100 mg Capsule
200 mg PO QPM
Refresh Optive 0.5-0.9 % Drops
1 drp BOTH EYES BIDPRN PRN (Reason: DRYNESS)
magnesium oxide 200 mg magnesium Tablet,Chewable
400 mg PO DAILY
tramadol 50 MG tablet
50 mg PO Q6HPRN PRN (Reason: svere pain)
melatonin 10 mg Tablet
20 mg PO DAILY
Benadryl
Hospital Transfer
Other hospital: [facility]
I certify that the patient requires transfer: Yes
Discussed case with accepting physician: Dr Luz Elena Santiago
Reason for transfer: higher level of care
Interventions
Interventions:
*Risk Screen - Suicide Last Done: 10/01/25 14:17
*General Assessment Last Done: 10/01/25 14:26
*Neglect/Abuse Screening Last Done: 10/01/25 14:26
*ED COVID-19 Vaccine History Last Done: 10/01/25 14:26
*ED Influenza Vaccine History Last Done: 10/01/25 14:26
[facility] Fall Risk Assessment Tool Last Done: 10/01/25 17:09
ED- Neurological Assessment Last Done: 10/01/25 17:39
ED Swallowing Screen Last Done: 10/01/25 19:42
Discharge Date and Time
Print Language: ARABIC
[2025-10-01] MEDS: DECADRON 10 MG IV (17:31)
[2025-10-01] MEDS: KEPPRA 1500 MG IV (17:32)
[2025-10-01 17:39] VITALS: BP 142/68
[2025-10-01 17:44] LABS: Urine Character Clear (Clear)
[2025-10-01 17:46] LABS: INR 1.04; PT 13.7 Sec (11.4-14.6)
[2025-10-01 17:47] LABS: APTT 35.9 Sec (23.4-35.0)
[2025-10-01 17:59] LABS: Urine Squamous Cell 0-2 /LPF (Few)
[2025-10-01 18:00] VITALS: BP 134/67
[2025-10-01 18:00] LABS: Urine Red Blood Cell 0-2 /HPF (0-2); Urine White Cell 0-2 /HPF (0-5); Urine White Cell Cast 0-2 /LPF
[2025-10-01] MEDS: TYLENOL 1000 MG PO (18:34)
[2025-10-01 19:00] VITALS: BP 117/70
[2025-10-01 20:00] VITALS: BP 137/67
[2025-10-01 21:00] VITALS: BP 99/85
== END 2025-10-01 21:40 | disposition short-term general hospital (02) ==
LOC: EMR 14:16
PROVIDERS: Emergency Medicine; EMERGENCY PHYSICIAN Emergency Medicine; FAMILY PHYSICIAN Family Medicine
DX: G93.9 Disorder of brain, unspecified (principal); E03.9 Hypothyroidism, unspecified; F32.A Depression, unspecified; Z85.118 Personal history of other malignant neoplasm of bronchus and lung; Z85.820 Personal history of malignant melanoma of skin; Z92.21 Personal history of antineoplastic chemotherapy; Z86.718 Personal history of other venous thrombosis and embolism; Z87.891 Personal history of nicotine dependence
CPT/HCPCS: 99291; 96374; 96375; 70450; 80053; 81003; 81015; 85025; 85610; 85730